=== PATIENT | female | born 1950 | race Caucasian/White ===

== ENCOUNTER → 2016-11-06 10:05 | Outpatient (CLI) | payer MEDICARE, OTHER ==
[2013-07-18 13:38] VITALS: BMI 22.0
[~2016-11-06 10:05] MED LIST: AMBIEN10 MG PO; APAP325 MG PO; CALCIUM CITRATE1 TAB PO; COZAAR50 MG PO; DULCOLAX10 MG/SUPP RC; FISH OIL 1,0001 CA1 PO; HYDRALAZINE20 MG/ML IV; HYDROCORTISONE30 G8 TP; MIRALAX17 GM PO; OYST-CAL-5001 TAB PO; PRILOSEC10 MG PO; PRILOSEC20 MG PO; PROTONIX 40 MG40 MG IV; PROTONIX40 MG PO; SALINE FLUSH10 ML IV; SENOKOT-S TABLE1 TAB PO; VITAMIN D2000 UNIT PO; VITAMIN D31000 UNIT PO; ZOCOR40 MG PO
== END | disposition home or self-care (01) ==
LOC: D.CT 10:05
DX: R41.82 Altered mental status, unspecified (principal)

== ENCOUNTER → 2016-11-11 16:32 | Outpatient (CLI) | payer MEDICARE, OTHER ==
[2013-07-18 13:38] VITALS: BMI 22.0
== END | disposition home or self-care (01) ==
LOC: D.MAMMO 16:00
DX: Z12.31 Encounter for screening mammogram for malignant neoplasm of breast (principal)

== ENCOUNTER → 2016-11-20 18:40 | Outpatient (CLI) | payer MEDICARE, OTHER ==
[2013-07-18 13:38] VITALS: BMI 22.0
== END | disposition home or self-care (01) ==
LOC: D.MAMMO 10:00
DX: R92.8 Other abnormal and inconclusive findings on diagnostic imaging of breast (principal)

== ENCOUNTER 2017-07-09 12:59 | Outpatient (CLI) | payer MEDICARE, OTHER ==
[~2017-07-09] VITALS: Ht 167.6 cm; Wt 56.8 kg
[2017-07-09 14:19] VITALS: BP 124/53; Ht 167.6 cm; Wt 56.8 kg
== END 2017-07-09 14:25 | disposition home or self-care (01) ==
LOC: D.OPS 12:59
DX: M81.0 Age-related osteoporosis without current pathological fracture (principal)

== ENCOUNTER 2018-01-30 09:36 | Inpatient (IN) | payer MEDICARE, OTHER ==
[2018-01-30] VITALS (8 sets, daily range): BP systolic 138–170; BP diastolic 64–71; BMI 19.4
[~2018-01-30] VITALS: Ht 167.6 cm; Wt 55.6 kg
[2018-01-30 10:06] LABS: BASOPHILS 0.2 % (0-2); EOSINOPHILS 0.2 % (0-7); HEMATOCRIT 40.1 % (36.0-48.0); HEMOGLOBIN 13.8 g/dL (12-16); IMMATURE GRANULOCYTES 0.3 % (0-5); LYMPHOCYTES 7.5 % (15-50); MCH 31.4 pg (26.0-34.0); MCHC 34.4 g/dL (31.0-37.0); MCV 91.3 fL (80.0-100.0); MEAN PLATELET VOLUME 8.4 fL (7.4-10.4); MONOCYTES 7.4 % (2-11); NEUTROPHILS 84.4 % (40-80); PLATELET COUNT 327 10x3/uL (130-400); RBC 4.39 10x6/uL (4.00-5.40); WBC 18.7 10x3/uL (4.8-10.8)
[2018-01-30 10:14] LABS: INR 0.96 (0.85-1.17); PROTIME 12.3 SECONDS (11.6-15.0)
[2018-01-30 10:24] LABS: ALBUMIN 3.3 g/dL (3.4-5.0); ALKALINE PHOSPHATASE 72 U/L (46-116); ALT (SGPT) 22 U/L (10-68); BILIRUBIN - TOTAL 0.28 mg/dL (0.2-1.3); CALC OSMOLALITY 283 mosm/kg (275-300); CALCIUM 8.4 mg/dL (8.5-10.1); CARBON DIOXIDE 24.4 mmol/L (21.0-32.0); CHLORIDE - SERUM 105 mmol/L (98-107); CREATININE - SERUM 0.7 mg/dL (0.6-1.3); GLUCOSE 130 mg/dL (74-106); POTASSIUM - SERUM 3.8 mmol/L (3.5-5.1); PROTEIN - SERUM 6.7 g/dL (6.4-8.2); SODIUM 141 mmol/L (136-145); UREA NITROGEN 15 mg/dL (7-18); eGFR NON AFRICAN AMERICAN 88 mL/min (90-120)
[2018-01-30 11:03] LABS: APPEARANCE HAZY (CLEAR); BACTERIA MANY /hpf (NONE SEEN); BILIRUBIN NEGATIVE (NEGATIVE); COLOR YELLOW (YELLOW); EPITHELIAL CELLS RARE /hpf (0-5); GLUCOSE NEGATIVE (NEGATIVE); KETONE NEGATIVE (NEGATIVE); NITRITE POSITIVE (NEGATIVE); PROTEIN TRACE mg/dL (NEGATIVE); RED CELLS - URINE OCC /hpf (0-5); SPECIFIC GRAVITY 1.025 (1.005-1.020); UROBILINOGEN NORMAL (NORMAL); WHITE CELLS - URINE 0-5 /hpf (0-5)
--- NOTE | 2018-01-30 12:10 | NUR ---
PATIENT AWAKE AND ALERT, RESPIRATIONS EVEN AND UNLABORED. SHE IS GUARDING AND RUBBING THE AREA LIGHTLY. FAMILY AND PATIENT UPDATED ON PLAN OF CARE AND DELAYS IN CARE. WILL CONTINUE TO MONITOR.
--- NOTE | 2018-01-30 12:50 | NUR ---
REC'D VIA STRETCHER FROM ER PERSONNEL, AWAKE, EYES WITH UPWARD GAZE, ANSWERS YES AND NO QUESTIONS, VSS, C/O OF PAIN WITH TOUCH OF RIGHT LEG, RIGHT LEG NOTED TO BE SHORTENED AND EXTERNALLY FIXATED, VERY PAINFUL NEAR HIP AREA, ASSESSMENT COMPLETED PER FLOWSHEET, FAMILY TO BEDSIDE, STATUS UPDATED, AWAITING WITH SPEAK WITH MD'S, ASSESSMENT COMPLETED PER MAR FLOWSHEET.
[2018-01-30] MEDS ORDERED: OS-CAL500 MG PO (13:53)
--- NOTE | 2018-01-30 15:00 | NUR ---
ASSESSMENT COMPLETED NO ACUTE CHANGE FROM PREVIOUS, DENIES PAIN AT THIS TIME
--- NOTE | 2018-01-30 19:30 | NUR ---
RECEIVED PATIENT CARE SHIFT ASSESSMENT COMPLETED SEE FLOWSHEET
--- NOTE | 2018-01-30 21:15 | NUR ---
PT RESTING COMFORTABLY VSS WILL CONTINUE TO MONITOR
--- NOTE | 2018-01-30 23:15 | NUR ---
REASSESSMENT SEE FLOWSHEET
[2018-01-31] VITALS (25 sets, daily range): BP systolic 121–169; BP diastolic 57–95
--- NOTE | 2018-01-31 01:45 | NUR ---
PT VITALS STABLE - SKIN WARM TO TOUCH AFEBRILE AT THIS TIME WILL CONTINUE TO MONITOR
--- NOTE | 2018-01-31 02:43 | NUR ---
PATIENT ABLE TO SPEAK AND ANSWER YES AND NO QUESTIONS
--- NOTE | 2018-01-31 03:15 | NUR ---
REASSESSMENT COMPLETED SEE FLOWSHEET
[2018-01-31 04:35] LABS: BASOPHILS 0.1 % (0-2); EOSINOPHILS 0 % (0-7); HEMATOCRIT 36.5 % (36.0-48.0); HEMOGLOBIN 12.3 g/dL (12-16); IMMATURE GRANULOCYTES 0.2 % (0-5); LYMPHOCYTES 12.8 % (15-50); MCH 31.3 pg (26.0-34.0); MCHC 33.7 g/dL (31.0-37.0); MCV 92.9 fL (80.0-100.0); MEAN PLATELET VOLUME 8.6 fL (7.4-10.4); MONOCYTES 13.7 % (2-11); NEUTROPHILS 73.2 % (40-80); PLATELET COUNT 313 10x3/uL (130-400); RBC 3.93 10x6/uL (4.00-5.40); RDW 13.4 % (11.5-14.5)
[2018-01-31 04:48] LABS: WBC 12.7 10x3/uL (4.8-10.8)
[2018-01-31 04:49] LABS: INR 1.01 (0.85-1.17); PROTIME 12.8 SECONDS (11.6-15.0)
[2018-01-31 04:52] LABS: CALC OSMOLALITY 280 mosm/kg (275-300); CALCIUM 7.9 mg/dL (8.5-10.1); CARBON DIOXIDE 25.5 mmol/L (21.0-32.0); CHLORIDE - SERUM 105 mmol/L (98-107); CREATININE - SERUM 0.7 mg/dL (0.6-1.3); GLUCOSE 135 mg/dL (74-106); POTASSIUM - SERUM 4.1 mmol/L (3.5-5.1); SODIUM 140 mmol/L (136-145); UREA NITROGEN 12 mg/dL (7-18); eGFR NON AFRICAN AMERICAN 88 mL/min (90-120)
--- NOTE | 2018-01-31 05:24 | NUR ---
PT RESTING IN BED, RESPONDS "NO" WHEN ASKED ABOUT PAIN. PHYSICALLY WHITDRAWLS FROM PAIN DURING RLE ASSESSMENT. NO ACUTE CHANGES, WILL CONTINUE TO MONITOR
--- NOTE | 2018-01-31 07:05 | NUR ---
REPORT RECIEVED, SHIFT ASSESSMENT COMPLETE, PT IS AWAKE AND ALERT, FOLLOWS COMMANDS, REORIENTED TO TIME, SOME APHASIC SPEECH NOTED, CLEAR SPEECH AT TIMES, ALL PPP, VSS, WILL CON'T TO MONITOR
--- NOTE | 2018-01-31 08:00 | NUR ---
DR. DICK AT BEDSIDE, UPDATE GIVEN, NEW ORDERS RECIVED,
--- NOTE | 2018-01-31 10:51 | NUR ---
DR. DUGAN AT BEDSIDE, UPDATE GIVEN
--- NOTE | 2018-01-31 11:15 | NUR ---
REASSESSMENT COMPLETE, NO CHANGES NOTED, WILL CON'T TO MONITOR
--- NOTE | 2018-01-31 12:39 | NUR ---
AT BEDSIDE, CONSENT SIGNED FOR TOMMOROW'S SURGERY
--- NOTE | 2018-01-31 13:00 | NUR ---
FAMILY AT BEDSIDE, UPDATE GIVEN
--- NOTE | 2018-01-31 15:20 | NUR ---
REASSESSMENT COMPLETE, NO CHANGES NOTED, PT RESTING COMFORTABLY AT THIS TIME, VSS, WILL CON'T TO MONITOR
--- NOTE | 2018-01-31 17:00 | NUR ---
PT RESTING AT THIS TIME, WILL CON'T TO MONITOR
--- NOTE | 2018-01-31 19:40 | NUR ---
RECEIVED PT CARE - SHIFT ASSESSMENT PERFORMED - PT DENIES PAIN, DOESN'T WANT TO BE REPOSITIONED AT THIS TIME. SYSTOLIC BP ELEVATION NOTED - LEFT SIDE WEAKNESS - RIGHT PUPIL FIXED AND DILATED. PT AWAKE AND ABLE TO REPOND APPROPRIATELY TO YES AND NO QUESTIONS. ON ROOM AIR. RESTING COMFORTABLY, WILL CONTINUE TO MONITOR
--- NOTE | 2018-01-31 21:15 | NUR ---
REPOSITIONED FOR COMFORT, NO OTHER NEEDS NOTED, WILL CON'T TO MONITOR
--- NOTE | 2018-01-31 23:09 | NUR ---
REASSESSMENT COMPLETE, NO CHANGES NOTED, PT RESTING AT THIS TIME, WILL CON'T TO MONITOR
[2018-02-01] VITALS (23 sets, daily range): BP systolic 78–171; BP diastolic 41–80; BMI 19.2
[2018-02-01 03:59] LABS: BASOPHILS 0.2 % (0-2); EOSINOPHILS 0.3 % (0-7); HEMATOCRIT 34.4 % (36.0-48.0); HEMOGLOBIN 11.5 g/dL (12-16); IMMATURE GRANULOCYTES 0.2 % (0-5); MCHC 33.4 g/dL (31.0-37.0); MCV 92.7 fL (80.0-100.0); MEAN PLATELET VOLUME 8.7 fL (7.4-10.4); MONOCYTES 16.3 % (2-11); PLATELET COUNT 291 10x3/uL (130-400); RBC 3.71 10x6/uL (4.00-5.40); RDW 13.5 % (11.5-14.5); WBC 11.7 10x3/uL (4.8-10.8)
[2018-02-01 04:28] LABS: ALBUMIN 2.8 g/dL (3.4-5.0); ALKALINE PHOSPHATASE 63 U/L (46-116); CALC OSMOLALITY 280 mosm/kg (275-300); CALCIUM 7.9 mg/dL (8.5-10.1); CARBON DIOXIDE 25.6 mmol/L (21.0-32.0); CHLORIDE - SERUM 106 mmol/L (98-107); CREATININE - SERUM 0.7 mg/dL (0.6-1.3); GLUCOSE 121 mg/dL (74-106); MAGNESIUM - SERUM 1.8 mg/dL (1.8-2.4); PROTEIN - SERUM 6.3 g/dL (6.4-8.2); SODIUM 141 mmol/L (136-145); UREA NITROGEN 11 mg/dL (7-18); eGFR NON AFRICAN AMERICAN 88 mL/min (90-120)
[2018-02-01 04:37] LABS: ALT (SGPT) 14 U/L (10-68)
--- NOTE | 2018-02-01 06:45 | NUR ---
PT PHOS LEVEL IS 2.0 - PT SCHEDULED FOR SURGERY THIS AM - CALLED PHARMACY FOR PHOSPHORUS IV - IV INFUSION IS OVER 4 HOURS WILL HOLD REPLACEMENT UNTIL PATIENT RETURNS
--- NOTE | 2018-02-01 08:45 | NUR ---
SURGERY TEAM HERE TO TAKE PT TO SURGERY
--- NOTE | 2018-02-01 10:56 | NUR ---
1022 - VERBAL INSTRUCTIONS FROM DR NELSON TO MAINTAIN MAP APPROX 90
--- NOTE | 2018-02-01 12:00 | NUR ---
DR PARRISH ORTHO SPEAKING WITH PATIENTS VIA PHONE AND UPDATED ON SURGICAL PROCEDURE
--- NOTE | 2018-02-01 14:00 | NUR ---
right piv infiltrated d/c'd cath intact. 22 guage piv started x1 attempt with blood return. PIV to right forearm
--- NOTE | 2018-02-01 17:00 | NUR ---
PT DENIES PAIN AT THIS TIME VSS TEDS AND PLEXIPULSE IN PLACE
--- NOTE | 2018-02-01 18:30 | NUR ---
PT RESTING QUIETLY WITH EYES CLOSED VSS PAIGE PAIN AT THIS TIME ORAL CARE DONE PT SAYS MOUTH DRY LIP MOISTURIZER APPLIED SHE SAYS THAT IS MUCH BETTER
--- NOTE | 2018-02-01 19:40 | NUR ---
SHIFT ASSESSMENT PERFORMED SEE FLOWSHEET
--- NOTE | 2018-02-01 20:32 | NUR ---
CALLED DR NAVARRO REGARDING PATIENT BLOOD PRESSURE, UNABLE TO LEAVE A MESSAGE AT THIS TIME
--- NOTE | 2018-02-01 23:10 | NUR ---
SEE FLOWSHEET FOR REASSESSMENT
[2018-02-02] VITALS (24 sets, daily range): BP systolic 120–164; BP diastolic 47–96
--- NOTE | 2018-02-02 01:05 | NUR ---
PT RESTING COMFORTABLY DENIES PAIN, VSS
[2018-02-02 04:47] LABS: CALC OSMOLALITY 282 mosm/kg (275-300); CALCIUM 7.5 mg/dL (8.5-10.1); CARBON DIOXIDE 25.2 mmol/L (21.0-32.0); CHLORIDE - SERUM 107 mmol/L (98-107); CREATININE - SERUM 0.6 mg/dL (0.6-1.3); GLUCOSE 120 mg/dL (74-106); SODIUM 142 mmol/L (136-145); UREA NITROGEN 11 mg/dL (7-18); eGFR NON AFRICAN AMERICAN > 90 mL/min (90-120)
[2018-02-02 04:49] LABS: BASOPHILS 0.2 % (0-2); EOSINOPHILS 0.1 % (0-7); IMMATURE GRANULOCYTES 0.2 % (0-5); LYMPHOCYTES 14.6 % (15-50); MCH 30.6 pg (26.0-34.0); MCHC 33.6 g/dL (31.0-37.0); MCV 91.1 fL (80.0-100.0); MEAN PLATELET VOLUME 8.8 fL (7.4-10.4); MONOCYTES 16.1 % (2-11); NEUTROPHILS 68.8 % (40-80); PLATELET COUNT 292 10x3/uL (130-400); RDW 13.3 % (11.5-14.5)
[2018-02-02 04:52] LABS: HEMATOCRIT 26.5 % (36.0-48.0); HEMOGLOBIN 8.9 g/dL (12-16); RBC 2.91 10x6/uL (4.00-5.40); WBC 8.6 10x3/uL (4.8-10.8)
[2018-02-02 04:57] LABS: POTASSIUM - SERUM 3.1 mmol/L (3.5-5.1)
--- NOTE | 2018-02-02 07:15 | NUR ---
REPORT RECEIVED AND CARE ASSUMED. SHIFT ASSESSMENT COMPLETED. EYES CLOSED WITH EVEN AND UNLABORED RESP. ON ROOM AIR. ON CONTACT ISOLATION FOR UTI OF ECOLI. GUZMAN PATENT WITH YELLOW URINE. WILL CONTINUE TO MONITOR.
--- NOTE | 2018-02-02 09:35 | NUR ---
Nutrition follow-up: Pt s/p hip repair Remains NPO due to not passing swallow eval Labs reviewed Wt: 125# Received nutrition consult. Recommend placing NGT and starting Osmolite 1.0 madeline @ 25 ml/hr with gradual increase to goal rate of 75 ml/hr. Flush with 60 ml H2O every 4 hours RDN following.
--- NOTE | 2018-02-02 10:15 | NUR ---
DR. MARI OFFICE CALLED RE: NGT/FEEDINGS
--- NOTE | 2018-02-02 15:14 | NUR ---
Nutrition consult: Per Dr. Duarte, TF of Osmolite 1.0 madeline ordered to start @ 20 ml/hr with gradual increase to goal rate of 70 ml/hr with 60 ml H2O flush Q [address] RDN following.
--- NOTE | 2018-02-02 16:15 | NUR ---
RECIEVED REPORT ON PT AT THIS TIME. PT NOTED LETHARGIC, RT SIDE WEAKER THAN LT. PT ONLY ABLE TO STATE YES OR NO QUESTIONS. NO ACUTE DISTRESS NOTED. CALL LIGHT IN REACH. FAMILY AT BEDSIDE. WILL CONTINUE PLAN OF CARE.
--- NOTE | 2018-02-02 18:09 | NUR ---
TUBE FEEDS STARTED AT THIS TIME PER PHYSICAIN ORDERS PER NGT. PLACEMENT VERIFIED VIA AUSCULTATION. NO ACUTE DISTRESS NOTED. WILL CONTINUE PLAN OF CARE.
--- NOTE | 2018-02-02 20:00 | NUR ---
REPORT RECEIVED, ASSESSMENT COMPLETED PER FLOW JOHN, PT SUPINE IN BED, HOB ELEVATED 30DEG, ON ALL ICU MONITORS, PT ANSWERS QUESTIONS WITH YES/NO ANSWERS, VSS, GUZMAN CARE COMPLETED, WILL CONT TO MONITOR
[2018-02-03] VITALS (23 sets, daily range): BP systolic 126–166; BP diastolic 46–110
[2018-02-03 05:35] LABS: BASOPHILS 0.2 % (0-2); EOSINOPHILS 1.1 % (0-7); HEMATOCRIT 25.8 % (36.0-48.0); HEMOGLOBIN 8.6 g/dL (12-16); IMMATURE GRANULOCYTES 0.3 % (0-5); LYMPHOCYTES 11.3 % (15-50); MCH 30.9 pg (26.0-34.0); MCHC 33.3 g/dL (31.0-37.0); MCV 92.8 fL (80.0-100.0); MEAN PLATELET VOLUME 8.7 fL (7.4-10.4); MONOCYTES 15.6 % (2-11); NEUTROPHILS 71.5 % (40-80); PLATELET COUNT 329 10x3/uL (130-400); RBC 2.78 10x6/uL (4.00-5.40); RDW 13.3 % (11.5-14.5); WBC 9.9 10x3/uL (4.8-10.8)
[2018-02-03 05:48] LABS: CALC OSMOLALITY 282 mosm/kg (275-300); CARBON DIOXIDE 24.4 mmol/L (21.0-32.0); CHLORIDE - SERUM 108 mmol/L (98-107); CREATININE - SERUM 0.6 mg/dL (0.6-1.3); GLUCOSE 119 mg/dL (74-106); POTASSIUM - SERUM 3.5 mmol/L (3.5-5.1); SODIUM 142 mmol/L (136-145); UREA NITROGEN 10 mg/dL (7-18); eGFR NON AFRICAN AMERICAN > 90 mL/min (90-120)
--- NOTE | 2018-02-03 07:20 | NUR ---
REPORT RECIEVED, SHIFT ASSESSMENT COMPLETE, PT IS CONFUSED LYING IN BED, REORIENTS EASILY, ALL PPP, VSS, WILL CON'T TO MONITOR
--- NOTE | 2018-02-03 09:02 | NUR ---
DR. NAVARRO AT BEDSIDE, UPDATE GIVEN TO FAMILY, NEW ORDERS RECIEVED
--- NOTE | 2018-02-03 10:12 | NUR ---
Bryanna Note- Acute Inpatient Rehab prescreen order received. The patient has not been up with PT yet, have a pending PT order- will follow at this time to see her functional ability to participate in the required therapy. Thank you for this referral! Dunia Cook RN Clinical Liaison, [facility] Rehab
--- NOTE | 2018-02-03 11:30 | NUR ---
REASSESSMENT COMPLETE, PT NOT FOLLOWING COMMANDS AT THIS TIME, REPOSITIONED FOR COMFORT,
--- NOTE | 2018-02-03 13:30 | NUR ---
COMPLETE BATH AND LINEN CHANGE, PT TOLERATED WELL
--- NOTE | 2018-02-03 14:15 | MORECARE ---
CASE MANAGEMENT DISCHARGE SUMMARY PATIENT: JOSEPH MG UNIT: [id number] ADM DATE: 01/30/18 AGE: 67 : 48 SEX: F ROOM/BED: D.2306 AUTHOR: LAURA HURLEY PHYSICIAN: REFERRING PHYSICIAN: PIOTR DICK DO DATE OF SERVICE: 02/03/18 Discharge Plan [facility] Name[facility] [facility] 1950 Planned Disposition: Anticipated Discharge Date: Discharge Date: Expected LOS: Initial Reviewer: [email or web address] Initial Review Date: 01/30/2018 Generated: 02/03/18 3:14 pm Patient Name: JOSEPH MG Page [phone] at 1415 All edits/amendments must be made on the electronic document DICTATION DATE: 02/03/181413 IN [employer] REPAIRER: SHAAN 02/03/18 1414 RPT#: [id number] DC DATE: STATUS: ADM IN [facility] [address] [place] [address] END OF REPORT
--- NOTE | 2018-02-03 15:15 | NUR ---
PT NOW FOLLOWING COMMANDS, SHAKES HEAD YES/NO,
--- NOTE | 2018-02-03 16:29 | MORECARE ---
CASE MANAGEMENT DISCHARGE SUMMARY PATIENT: JOSEPH MG UNIT: [id number] ADM DATE: 01/30/18 AGE: 67 : 48 SEX: F ROOM/BED: D.2306 AUTHOR: LAURA HURLEY PHYSICIAN: REFERRING PHYSICIAN: PIOTR DICK DO DATE OF SERVICE: 02/03/18 Discharge Plan Patient Name: JOSEPH MG [facility] [facility] 1950 Planned Disposition: Inpatient Rehab Anticipated Discharge Date: Discharge Date: Expected LOS: Initial Reviewer: [email or web address] Initial Review Date: 02/03/2018 Generated: 02/03/18 5:29 pm DCPIA - Discharge Planning Initial Assessment Updated by [id number]: Ana Willingham on 02/03/18 4:22 pm * Is the patient Alert and Oriented? No * How many steps to enter\exit or inside your home? * PCP Jhony Duarte * [facility] * Preadmission Environment Home with Family * ADLs Partial Dependent * Partial ADLs (Assistance needed) Ambulation Bathing Dressing Eating Medication Management Toileting Transfers * Equipment Walker Wheelchair * List name and contact numbers for known caregivers / representatives who currently or will assist patient after discharge: Mike Alfredo - [email or web address] - [phone] * Verbal permission to speak to the caregivers and representatives has been obtained from the patient. No * Community resources currently utilized Other * Please name any agencies selected above. Has healthcare customer service that comes in 5 days a week for 4 hrs day and assist with therapy and daily needs * Additional services required to return to the preadmission environment? No * Can the patient safely return to the preadmission environment? Yes * Has this patient been hospitalized within the prior 30 days at any hospital? No Last DP export: 02/03/18 1:15 Patient Name: JOSEPH MG Page [id number] at 6281 All edits/amendments must be made on the electronic document DICTATION DATE: 02/03/181627 CENTRAL OFFICE REPAIRER SUPERVISOR: SHAAN 02/03/181627 RPT#: [id number] DC DATE: STATUS: ADM IN [facility] [address] [place] [address] END OF REPORT
--- NOTE | 2018-02-03 16:40 | MORECARE ---
CASE MANAGEMENT DISCHARGE SUMMARY PATIENT: JOSEPH MG UNIT: [id number] ADM DATE: 01/30/18 AGE: 67 : 48 SEX: F ROOM/BED: D.2306 AUTHOR: LAURA HURLEY PHYSICIAN: REFERRING PHYSICIAN: PIOTR DICK DO DATE OF SERVICE: 02/03/18 Discharge Plan Patient Name: JOSEPH MG Facility: [facility]:[place] : 1950 Planned Disposition: Inpatient Rehab Anticipated Discharge Date: Discharge Date: Expected LOS: Initial Reviewer: [email or web address] Initial Review Date: 02/03/2018 Generated: 02/03/18 5:40 pm Comments DCP- Discharge Planning Updated by [email or web address]: Ana Willingham on 02/03/18 3:[address] Patient Name: JOSEPH MG Admission Status: ER Accout number: [id number] Admission Date: 01-30-2018 : 1950 Admission Diagnosis:DISPLACED INTERTROCHANTERIC FRACTURE OF RIGHT FEMUR, IN Attending: Piotr Dick Current LOS: 4 Anticipated DC Date: Planned Disposition: Inpatient Rehab Primary Insurance: MEDICARE A & B Discharge Planning Comments: CM spoke with patients spouse (Mike) Patient is currently non-verbal. Mike stated that she lived at home with him prior to admission. He stated that she has a caregiver that comes in 5 days a week for 4 hr. a day. (Dania) She helps with therapy speech and exercise therapy. Mike denies any discharge needs at this time. Patient has an evaluation for Inpatient Rehab but wasn't responding when PT was here for evaluation. Plan for inpatient rehab upon discharge from acute care then home. CM will continue to follow and assist with discharge planning / needs. Pot Room Tapper: Ana Willingham DCPIA - Discharge Planning Initial Assessment Updated by [email or web address]: Ana Willingham on 02/03/18 4:22 pm * Is the patient Alert and Oriented? No * How many steps to enter\exit or inside your home? * PCP Jhony Duarte * Pharmacy [facility] * Preadmission Environment Home with Family * ADLs Partial Dependent * Partial ADLs (Assistance needed) Ambulation Bathing Dressing Eating Medication Management Toileting Transfers * Equipment Walker Wheelchair * List name and contact numbers for known caregivers / representatives who currently or will assist patient after discharge: Mike Alfredo - spouse - [phone] * Verbal permission to speak to the caregivers and representatives has been obtained from the patient. No * Community resources currently utilized Other * Please name any agencies selected above. Has daycare worker that comes in 5 days a week for 4 hrs day and assist with therapy and daily needs * Additional services required to return to the preadmission environment? No * Can the patient safely return to the preadmission environment? Yes * Has this patient been hospitalized within the prior 30 days at any hospital? No Last DP export: 02/03/18 3:29 Patient Name: JOSEPH MG Page [id number] at 1640 All edits/amendments must be made on the electronic document DICTATION DATE: 02/03/18 163 BRAKE TESTER: SHAAN 02/03/18 163 RPT#: [id number] DC DATE: STATUS: ADM IN [facility] [address] [place] [address] END OF REPORT
--- NOTE | 2018-02-03 17:30 | NUR ---
FAMILY AT BEDSIDE, UPDATE GIVEN
--- NOTE | 2018-02-03 19:30 | NUR ---
ASSESSMENT COMPLETE, PATIENT REPOSITIONED, ORAL CARE PROVIDED, NO OTHER NEEDS COMMUNICATED AT THIS TIME. IV RESITED 20G TO RIGHT FOREARM X1 ATTEMPT
--- NOTE | 2018-02-03 21:00 | NUR ---
PATIENT REPOSITIONED, MONITORING EQUIPMENT ADJUSTED, CONTINUE POC
--- NOTE | 2018-02-03 23:00 | NUR ---
RE-ASSESSMENT COMPLETE, PATIENT REPOSITIONED, ORAL CARE PROVIDED, NO OTHER NEEDS NOTED OR COMMUNICATED AT THIS TIME
[2018-02-04] VITALS (24 sets, daily range): BP systolic 115–165; BP diastolic 44–75
--- NOTE | 2018-02-04 01:00 | NUR ---
PATIENT REPOSITIONED, GUZMAN CARE PROVIDED, CONTINUE POC
--- NOTE | 2018-02-04 03:00 | NUR ---
RE-ASSESSMENT COMPLETE, ORAL CARE PROVIDED, PATIENT REPOSITIONED
[2018-02-04 04:32] LABS: BASOPHILS 0.1 % (0-2); EOSINOPHILS 1.9 % (0-7); HEMATOCRIT 23.2 % (36.0-48.0); HEMOGLOBIN 7.9 g/dL (12-16); IMMATURE GRANULOCYTES 0.2 % (0-5); LYMPHOCYTES 13.4 % (15-50); MCH 31.1 pg (26.0-34.0); MCHC 34.1 g/dL (31.0-37.0); MCV 91.3 fL (80.0-100.0); MEAN PLATELET VOLUME 8.4 fL (7.4-10.4); MONOCYTES 13.8 % (2-11); NEUTROPHILS 70.6 % (40-80); PLATELET COUNT 326 10x3/uL (130-400); RBC 2.54 10x6/uL (4.00-5.40); RDW 13.2 % (11.5-14.5)
[2018-02-04 04:55] LABS: CALC OSMOLALITY 281 mosm/kg (275-300); CALCIUM 7.9 mg/dL (8.5-10.1); CARBON DIOXIDE 26.9 mmol/L (21.0-32.0); CHLORIDE - SERUM 106 mmol/L (98-107); CREATININE - SERUM 0.5 mg/dL (0.6-1.3); GLUCOSE 136 mg/dL (74-106); POTASSIUM - SERUM 3.2 mmol/L (3.5-5.1); SODIUM 141 mmol/L (136-145); UREA NITROGEN 11 mg/dL (7-18); eGFR NON AFRICAN AMERICAN > 90 mL/min (90-120)
--- NOTE | 2018-02-04 05:00 | NUR ---
PATIENT REPOSITIONED, WAKES EAILY, THEN BACK TO SLEEP, C/L IN REACH
--- NOTE | 2018-02-04 07:00 | NUR ---
REC'D REPORT AND RESUMED CARE, AWAKE AND ALERT, FOLLOWS COMMANDS, VSS, ASSESSMENT COMPLETE PER FLOWSHEET, REPOSITIONED TO LEFT SODE, PILLOW PLACED TO BACK AND HEELS FLOATED
--- NOTE | 2018-02-04 09:41 | NUR ---
Rehab Note- Continue to follow at this time to see if the patient's activity tolerance increases to be able to particpate in the required 3hrs of therapy per day in acute inpatient rehab. Thank you for this referral! Dunia Cook RN Clinical Liaison, [facility] Rehab
--- NOTE | 2018-02-04 10:11 | NUR ---
Nutrition follow-up: Pts remains NPO Osmolite 1.0 now infusing @ 40 ml/hr and will increase to 70 ml/hr goal within 24 hours Labs reviewed Wt: 130# Pt tolerating TF at this time. RDN following.
--- NOTE | 2018-02-04 11:00 | NUR ---
ASSESSMENT COMPLETE, PRBC INFUSING AT 150 CC/HR, NO OTHER ACUTECHANGE FROM PREVIOUS ASSESSMENT
--- NOTE | 2018-02-04 13:10 | NUR ---
PRBC COMPLETE, VSS, NO SIGNS OF DISTRESS, FAMILY AT BEDSIDE, STATUS UPDATED, VOICES NO NEEDS AT THIS TIME
[2018-02-04 14:01] LABS: HEMATOCRIT 27.1 % (36.0-48.0); HEMOGLOBIN 9.2 g/dL (12-16)
--- NOTE | 2018-02-04 19:00 | NUR ---
ASSESSMENT COMPLETED. SEE FLOW SHEETS FOR ALL FINDINGS. PT AWAKE, ALERT TO NAME, FOLLOW SIMPLE COMMANDS. SR ON CM WITH HR AT 60BPM, LUNG SOUNDS CLEAR TO ULB WITH DIMINISHED TO LLB,UNLABORED ON 2L VIA NC. RT FA PIV INTACT, CLEAN AND DRY INFUSING IV FLUIDS PER ORDER VIA PUMP. RT HIP DRESSING C,D,I. GUZMAN INTACT TO GRAVITY WITH CONSTANTINO DRAINAGE TO BAG. PPP. REPOSITIONED FOR COMFORT. PILLOW IN USE FOR SUPPORT. WILL CONT TO MONITOR.
--- NOTE | 2018-02-04 21:00 | NUR ---
NO FAMILY VISITING. SCHEDULED MEDS GIVEN PER ORDER VIA NGT WITHOUT DIFFIC. REPOSITIONED FOR COMFORT. CONT TF PER ORDER. WILL CONT TO MONITOR.
--- NOTE | 2018-02-04 23:00 | NUR ---
REASSESSMENT COMPLETED. SEE FLOW SHEETS FOR ALL FINDINGS. PT AROUSES WITH VOICES, NO ACUTE CHANGED NOTED. VSS. CPOC
[2018-02-05] VITALS (24 sets, daily range): BP systolic 120–168; BP diastolic 47–89
--- NOTE | 2018-02-05 01:00 | NUR ---
PT AWAKE, FOLLOW SIMPLE COMMANDS, REPOSITIONED FOR COMFORT, PILLOWS FOR COMFORT. VSS. CPOC.
--- NOTE | 2018-02-05 03:00 | NUR ---
REASSESSMENT COMPLETED PER FLOW SHEETS. PT AROUSES EASILY WITH VOICES. NO ACUTE CHANGES NOTED IN PT'S STATUS. CPOC.
[2018-02-05 03:31] LABS: BASOPHILS 0.2 % (0-2); HEMATOCRIT 27.9 % (36.0-48.0); HEMOGLOBIN 9.5 g/dL (12-16); IMMATURE GRANULOCYTES 0.3 % (0-5); LYMPHOCYTES 14.1 % (15-50); MCH 30.6 pg (26.0-34.0); MCHC 34.1 g/dL (31.0-37.0); MEAN PLATELET VOLUME 8.5 fL (7.4-10.4); MONOCYTES 11.8 % (2-11); NEUTROPHILS 71.6 % (40-80); PLATELET COUNT 339 10x3/uL (130-400); RDW 14.2 % (11.5-14.5); WBC 11.8 10x3/uL (4.8-10.8)
[2018-02-05 03:35] LABS: CALC OSMOLALITY 277 mosm/kg (275-300); CARBON DIOXIDE 25.2 mmol/L (21.0-32.0); CHLORIDE - SERUM 105 mmol/L (98-107); CREATININE - SERUM 0.5 mg/dL (0.6-1.3); GLUCOSE 159 mg/dL (74-106); POTASSIUM - SERUM 4.1 mmol/L (3.5-5.1); SODIUM 138 mmol/L (136-145); UREA NITROGEN 9 mg/dL (7-18); eGFR NON AFRICAN AMERICAN > 90 mL/min (90-120)
--- NOTE | 2018-02-05 05:00 | NUR ---
PT RESTING QUIETLY WITHOUT DISTRESS. VSS.
--- NOTE | 2018-02-05 07:00 | NUR ---
REPORT RECIEVED, SHIFT ASSESSMENT COMPLETE, DR. DICK AT BEDSIDE, UPDATE GIVEN, NEW ORDERS RECIEVED,
--- NOTE | 2018-02-05 09:00 | NUR ---
FAMILY AT BEDSIDE, UPDATE GIVEN
--- NOTE | 2018-02-05 10:02 | NUR ---
NUTRITION F/U PT REMAINS IN ISOLATION. OSMOLITE 1.0 NIMISHA CURRENTLY AT 60 CC/HR WITH GOAL RATE 70 CC/HR. WILL CONTINUE TO PROVIDE OSMOLITE, MONITOR PT PROGRESS. RD FOLLOWING
--- NOTE | 2018-02-05 11:15 | NUR ---
REASSESSMENT COMPLETE, NO CHANGES NOTED, PT RESTING AT THIS TIME, WILL CON'T TO MONITOR
--- NOTE | 2018-02-05 13:05 | NUR ---
REPOSITIONED FOR COMFORT, DRSG CHANGED TO RIGHT HIP,
--- NOTE | 2018-02-05 15:15 | NUR ---
REASSESSMENT COMPLETE, REPOSITIONED FOR COMFORT, WILL CON'T TO MONITOR
--- NOTE | 2018-02-05 17:00 | NUR ---
FAMILY AT BEDSIDE, UPDATE GIVEN
--- NOTE | 2018-02-05 21:30 | NUR ---
NO VISITORS PRESENT AT THIS TIME, PT POSITIONED FOR COMFORT, VSS.
[2018-02-06] VITALS (20 sets, daily range): BP systolic 121–168; BP diastolic 52–107
--- NOTE | 2018-02-06 06:17 | NUR ---
PT INCONTINENT OF MODERATE FORMED BM, COMPLETE BATH AND LINEN CHANGE DONE, POSITIONED FOR COMFORT, VSS.
[2018-02-06 07:49] LABS: BASOPHILS 0.1 % (0-2); EOSINOPHILS 1.6 % (0-7); HEMATOCRIT 29.3 % (36.0-48.0); HEMOGLOBIN 10.1 g/dL (12-16); IMMATURE GRANULOCYTES 0.4 % (0-5); LYMPHOCYTES 13.4 % (15-50); MCH 30.5 pg (26.0-34.0); MCHC 34.5 g/dL (31.0-37.0); MCV 88.5 fL (80.0-100.0); MEAN PLATELET VOLUME 8.3 fL (7.4-10.4); MONOCYTES 14.2 % (2-11); NEUTROPHILS 70.3 % (40-80); PLATELET COUNT 379 10x3/uL (130-400); RBC 3.31 10x6/uL (4.00-5.40); RDW 13.9 % (11.5-14.5); WBC 13.5 10x3/uL (4.8-10.8)
[2018-02-06 09:12] LABS: ALBUMIN 2.3 g/dL (3.4-5.0); ALKALINE PHOSPHATASE 146 U/L (46-116); ALT (SGPT) 25 U/L (10-68); BILIRUBIN - TOTAL 0.89 mg/dL (0.2-1.3); CALC OSMOLALITY 266 mosm/kg (275-300); CALCIUM 8.2 mg/dL (8.5-10.1); CARBON DIOXIDE 22.7 mmol/L (21.0-32.0); CHLORIDE - SERUM 100 mmol/L (98-107); CREATININE - SERUM 0.1 mg/dL (0.6-1.3); GLUCOSE 110 mg/dL (74-106); MAGNESIUM - SERUM 1.7 mg/dL (1.8-2.4); SODIUM 134 mmol/L (136-145); UREA NITROGEN 8 mg/dL (7-18); eGFR NON AFRICAN AMERICAN > 90 mL/min (90-120)
--- NOTE | 2018-02-06 10:00 | NUR ---
SPOUSE AT BEDSIDE - ANSWERED ALL QUESTIONS TO FAMILY'S STATISFACDTION - DISCUSSED ADL'S PREVOIOUS TO PT'S CURRENT ILLNESS - PT IS W/C BOUND BUT ABLE TO GET AROUND - 1ST CVA ABOUT 6 YEARS AGO - CPOC
--- NOTE | 2018-02-06 12:00 | NUR ---
NO VISITORS AT THIS TIME - PT RESTING - DR. MARIE AT BEDSIDE FOR ASSESSMENT 0 ORDERS RECIEVED TO GET PT UP TO CHAIR - RESTART TUBE FEEDING AT 10ML/HR AND PROGRESS TO 70ML/HR (UP 10ML/HR EVERY 8 HOURS) DISCUSSED ASPIRIN ANTI-COAGULATION THERAPY - ORDER CT HEAD - CPOC
--- NOTE | 2018-02-06 14:47 | NUR ---
BATHED PT - CHANGED LINENS/BED CLOTHES, CHANGED RIGHT HIP DRESSING. URINE CULTURE OBTAINED - SENT TO LABS
--- NOTE | 2018-02-06 15:55 | NUR ---
TRANSFERRED PT VIA BED FROM CT SCAN - PT TOLERATED PROCEDURE WELL
--- NOTE | 2018-02-06 15:57 | NUR ---
I&O COMPLTE SEE FLOW SHEET
--- NOTE | 2018-02-06 16:00 | NUR ---
X-RAY TECH FOR CXR TO ASSESS LOCATION OF NG TUBE IN STOMACH -NGT TUBE NOT IN CORRECT PLACEMENT - TUBE COILED IN STOMACH - ADJUSTED LENGHT OF NGT (APPROX 12 INCHES) - REPEAT X-RAY NGT IN PROPPER LOCATION - WILL START NG TUBE FEED PER MD REQUEST - PT WAS NOT ASSESS BY P.T. TODAY - WILL POSTION PATIET UP RIGHT IN BED (45 DEGREE) TO START TUBE FEED AND MONITOR CLOSELY
--- NOTE | 2018-02-06 18:00 | NUR ---
RESTATED TUBE FEEEDING - PT AT 45 DEGREE - START AT 10ML/HR PER MD ORDERED - CPOC
--- NOTE | 2018-02-06 18:07 | NUR ---
NO ACUTE CHANGE FROM PREVIOUS CT SCAN PER RADIOLOGIST - CPOC
--- NOTE | 2018-02-06 19:40 | NUR ---
RESUMED CARE OF PT, ASSESSNENT PER FLOWSHEET. PT AROUSES TO VOICE, DOES FOLLOW COMMANDS AND SHAKE HEAD TO YES/NO QUESTIONS BUT DOES NOT VERBALLY RESPOND, PPP, RT HIP DRESSING CDI, HR SR ON CM, NGT WITH PLACEMENT VERIFIED VIA AUSCULTATION OF SMALL AIR BOLUS, GUZMAN CATH PATENT. POSITIONED FOR COMFORT SUPPORTED WITH PILLOWS, HOB AT 45 DEGREES.
--- NOTE | 2018-02-06 21:20 | NUR ---
NO VISITORS PRESENT AT THIS TIME, PT RESTLESS IN BED, REPOSITIONED UP IN BED SUPPORTED WITH PILLOWS. VSS
--- NOTE | 2018-02-06 23:30 | NUR ---
REASSESSMENT PER FLOWSHEET, ORAL CARE PROVIDED, POSITIONED UP IN BED TO 45 DEGREE ANGLE SUPPORTED WITH PILLOWS. VSS
[2018-02-07] VITALS (25 sets, daily range): BP systolic 18–165; BP diastolic 43–77; Ht 167.6 cm; Wt 55.6 kg
--- NOTE | 2018-02-07 01:30 | NUR ---
PT STATED "OW" WHILE REPOSITIONING. ASKED IF SHE WANTED SOMETHING FOR PAIN AND SHE REPLIED YES. PRN NORCO 7.5/325 MG ADMINISTERED PER NGT.
--- NOTE | 2018-02-07 03:23 | NUR ---
PT RESTING IN BED WITH EYES CLOSED UP IN BED, VSS, SR ON CM.
[2018-02-07 03:46] LABS: BASOPHILS 0.1 % (0-2); EOSINOPHILS 0.9 % (0-7); HEMATOCRIT 30.4 % (36.0-48.0); HEMOGLOBIN 10.3 g/dL (12-16); IMMATURE GRANULOCYTES 0.5 % (0-5); LYMPHOCYTES 8.8 % (15-50); MCH 30.6 pg (26.0-34.0); MCHC 33.9 g/dL (31.0-37.0); MCV 90.2 fL (80.0-100.0); MEAN PLATELET VOLUME 9.2 fL (7.4-10.4); MONOCYTES 14.8 % (2-11); NEUTROPHILS 74.9 % (40-80); RBC 3.37 10x6/uL (4.00-5.40); RDW 13.8 % (11.5-14.5)
[2018-02-07 03:50] LABS: CALC OSMOLALITY 272 mosm/kg (275-300); CALCIUM 8.3 mg/dL (8.5-10.1); CARBON DIOXIDE 25.3 mmol/L (21.0-32.0); CHLORIDE - SERUM 102 mmol/L (98-107); GLUCOSE 135 mg/dL (74-106); POTASSIUM - SERUM 4.6 mmol/L (3.5-5.1); SODIUM 136 mmol/L (136-145); UREA NITROGEN 9 mg/dL (7-18)
[2018-02-07 03:51] LABS: PLATELET COUNT 272 10x3/uL (130-400); WBC 16.9 10x3/uL (4.8-10.8)
[2018-02-07 03:59] LABS: CREATININE - SERUM 0.6 mg/dL (0.6-1.3); eGFR NON AFRICAN AMERICAN > 90 mL/min (90-120)
--- NOTE | 2018-02-07 05:20 | NUR ---
PT INCONTINENT OF FORMED BROWN BM, COMPLETE BATH AND LINEN CHANGE DONE, PT TOLERATED WITHOUT DIFFICULTY.
--- NOTE | 2018-02-07 06:38 | NUR ---
AM LABS REVIEWED, NOTHING TO TREAT PER ELECTROLYTE PROTOCOL.
--- NOTE | 2018-02-07 07:00 | NUR ---
REC'ED REPORT FROM OUT GOING RN - PT RESTING WITH EYES CLOSED - RESPIRATIONS REGULAR RATE AND RHYTHM - CPOC
--- NOTE | 2018-02-07 08:15 | NUR ---
MEDICATIONS GIVEN - EXCEPT OSCAL - NOTIFIED EMERGENCY PLANNER - AWAITING RX. - CPOC
--- NOTE | 2018-02-07 08:45 | NUR ---
DR. BILLINGS AT BEDSIDE FOR ASSESSMENT - DISCUSSED P.T. PLAN OF CARE (TO GET HER UP TO BEDSIDE CHAIR) CPOC
--- NOTE | 2018-02-07 09:00 | NUR ---
INCREASED TUBE FEEDING TO 2O ML/HR - CONTINUE TO MONITOR AND REPORT FINDINGS PER POLICY
--- NOTE | 2018-02-07 09:11 | NUR ---
CALLED PHARMACY TO REQUEST 500MG OSCAL TAB - 2ND NOTIFICATION
--- NOTE | 2018-02-07 11:38 | NUR ---
DR. MARIE AT BEDSIDE FOR ASSESSMENT - ORDER S.P. THERAPY - CALLED P.T. TO LET THEM KNOW OF ORDER, LEFT VOICE MAIL. UPDATED MD ON TUBE FEED AT 30 ML/HR, URINE/BLOOD CULTURES OBTAINED, AND WBC UP (16.9). AWAITING ORDERS.
--- NOTE | 2018-02-07 13:03 | NUR ---
MEDICATIONS GIVEN - TURNED PT - PT NOT RESPONDSIVE WELL YESTERDAY - MD AWARE OF CHANGE -
--- NOTE | 2018-02-07 13:30 | NUR ---
PT RESTING AT THIS TIME, WILL CON'T TO MONITOR
--- NOTE | 2018-02-07 15:15 | NUR ---
AT BEDSIDE, UPDATE GIVEN
--- NOTE | 2018-02-07 15:17 | NUR ---
AT BEDSIDE, UPDATE GIVEN
--- NOTE | 2018-02-07 17:05 | NUR ---
DR. NESBITT AT BEDSIDE, UPDATE GIVEN
--- NOTE | 2018-02-07 17:40 | NUR ---
Rehab Note- Continue to follow at this time. Patient not progressing well with therapy. Possible PEG placement. Dunia Cook RN Clinical Liaison, [facility] Rehab
[2018-02-07 18:35] LABS: ALBUMIN 1.9 g/dL (3.4-5.0); CALC OSMOLALITY 275 mosm/kg (275-300); CALCIUM 8.1 mg/dL (8.5-10.1); CARBON DIOXIDE 24.5 mmol/L (21.0-32.0); CHLORIDE - SERUM 104 mmol/L (98-107); CREATININE - SERUM 0.6 mg/dL (0.6-1.3); GLUCOSE 120 mg/dL (74-106); MAGNESIUM - SERUM 1.8 mg/dL (1.8-2.4); PHOSPHOROUS 3.6 mg/dL (2.5-4.9); POTASSIUM - SERUM 4.1 mmol/L (3.5-5.1); PRE-ALBUMIN 11.2 mg/dL (18.0-35.7); SODIUM 138 mmol/L (136-145); UREA NITROGEN 10 mg/dL (7-18); eGFR NON AFRICAN AMERICAN > 90 mL/min (90-120)
--- NOTE | 2018-02-07 19:10 | NUR ---
Received patient resting in bed with eyes closed, assessment completed per flowsheet. Patient confused/disoriented, inconsistent appropriate response to questions. NGT secured, Pulmocare @ 30ml/hr. S1/S2 noted NSR on telemetry with HR 62, rythmic and regular. Breathing is even/unlabored on room air with O2 sat 95%, lung sounds clear throughout. Abdomen is round/soft with bowel sounds active x4, non-tender. Velez secured, clear yellow. Weakness noted all extremities with all pulses palpable, cap refill < 3 sec with skin warm/dry. Patient denies pain or other needs at this time, repositioned for comfort. See flowsheet for details, all VSS and will continue to monitor.
--- NOTE | 2018-02-07 21:00 | NUR ---
Patient sleeping in bed with eyes closed, HS meds given without difficulty. Patient repositioned for comfort, no visitors at this time. All VSS and will continue to monitor.
--- NOTE | 2018-02-07 23:00 | NUR ---
Reassessment completed per flowsheet, patient resting in bed with eyes closed. S1/S2 noted NSR on telemetry with HR 74, rythmic and regular. Breathing is even/unlabored on room air with O2 sat 93%, lung sounds clear bilateral upper with expiratory wheeze noted mid and diminished lower. All pulses palpable with cap refill < 3 sec, weakness noted all. Patient repositioned for comfort, no further needs at this time. See flowsheet for details, all VSS and will continue to monitor.
[2018-02-08] VITALS (25 sets, daily range): BP systolic 103–181; BP diastolic 57–97
--- NOTE | 2018-02-08 03:00 | NUR ---
Reassessment completed per flowsheet, patient resting in bed with eyes closed. Patient follows instructions, does not answer at this time. NGT secured, Pulmocare @ 50ml/hr. S1/S2 noted NSR on telemetry with HR 70, rythmic and regular. Breathing is even/unlabored on room air with O2 sat 95%, lung sounds clear bilateral uppper with expiratory wheeze mid and diminished lower. All pulses palpable with cap refill < 3 sec, skin warm/dry. Repositioned for comfort, no further needs at this time. See flowhsst for details, all VSS and will continue to monitor.
[2018-02-08 04:57] LABS: BASOPHILS 0.2 % (0-2); EOSINOPHILS 2.1 % (0-7); HEMATOCRIT 28.8 % (36.0-48.0); HEMOGLOBIN 9.5 g/dL (12-16); IMMATURE GRANULOCYTES 0.4 % (0-5); LYMPHOCYTES 12.9 % (15-50); MCH 30.1 pg (26.0-34.0); MCV 91.1 fL (80.0-100.0); MEAN PLATELET VOLUME 8.7 fL (7.4-10.4); MONOCYTES 14.7 % (2-11); NEUTROPHILS 69.7 % (40-80); RBC 3.16 10x6/uL (4.00-5.40); RDW 13.8 % (11.5-14.5)
[2018-02-08 05:18] LABS: PLATELET COUNT 343 10x3/uL (130-400); WBC 12.5 10x3/uL (4.8-10.8)
[2018-02-08 05:21] LABS: ALKALINE PHOSPHATASE 149 U/L (46-116); ALT (SGPT) 21 U/L (10-68); BILIRUBIN - TOTAL 0.66 mg/dL (0.2-1.3); CALC OSMOLALITY 275 mosm/kg (275-300); CARBON DIOXIDE 26.9 mmol/L (21.0-32.0); CHLORIDE - SERUM 104 mmol/L (98-107); CREATININE - SERUM 0.6 mg/dL (0.6-1.3); GLUCOSE 110 mg/dL (74-106); MAGNESIUM - SERUM 1.8 mg/dL (1.8-2.4); PHOSPHOROUS 3.4 mg/dL (2.5-4.9); PROTEIN - SERUM 5.9 g/dL (6.4-8.2); SODIUM 138 mmol/L (136-145); UREA NITROGEN 10 mg/dL (7-18); eGFR NON AFRICAN AMERICAN > 90 mL/min (90-120)
--- NOTE | 2018-02-08 07:00 | NUR ---
SHIFT ASSESSMENT COMPLETED, PT CARE ASSUMED. MONITORS ON AND WORKING, VITALS STABLE. SEE FLOW SHEET FOR FURTHER DETAIALS, CALL LIGHT WITHIN REACH, WILL CONTINUE TO OBSERVE.
--- NOTE | 2018-02-08 09:00 | NUR ---
CONSENT OBTAINED FOR EGD AND PEG PER . FAMILY AT BEDSIDE, UPDATE PROVIDED. NO CHANGES, VITALS STABLE. WILL CONTINUE TO OBSERVE.
--- NOTE | 2018-02-08 09:34 | NUR ---
Nutrition follow-up: Pt now NPO for PEG tube placement. Labs reviewed Wt: 119# Recommend restarting Osmolite 1.0 madeline @ 70 ml/hr after PEG tube placement with 60 ml H2O flush @ [address] following.
--- NOTE | 2018-02-08 11:00 | NUR ---
PT TURNED AND REPOSITIONED FOR COMFORT. NO CHANGES, MONITORS ON AND WORKING. VITALS STABLE. SEE FLOW SHEET FOR FURTHER DETIALS. WILL CONTINUE TO OBSERVE.
--- NOTE | 2018-02-08 13:00 | NUR ---
PT SITTING UP IN BED RESTING, NO SIGNS/SYMPTOMS OF PAIN OR DISCOMFORT NOTED AT THIS TIME. WILL CONTINUE TO OBSERVE.
--- NOTE | 2018-02-08 15:00 | NUR ---
NO CHNAGES, SEE FLOW SHEET FOR FURTHER DETAILS. VITALS STABLE, CALL LIGHT WITHIN REACH. WILL CONTINUE TO OBSERVE.
--- NOTE | 2018-02-08 17:00 | NUR ---
PT TURNED AND REPOSITIONED FOR COMFORT. NO SIGNS/SYMPTOMS OF PAIN OR DISCOMFORT NOTED AT THIS TIME. WILL CONTINUE TO OBSERVE.
--- NOTE | 2018-02-08 19:10 | NUR ---
Received patient resting in bed with eyes open, assessment completed per flowsheet. Patient disoriented/confused to time/situation, can follow instructions but no verbal response. S1/S2 noted NSR on telemetry with HR 83, rythmic and regular. Pacemaker noted, no pacing observed on telemetry. Breathing is shallow on room air with O2 sat 95%, lungs sounds clear bilateral upper and mid with diminished lower. Abdomen is round/soft with bowel sounds active x4, non-tender. Velez secured, clear yellow urine noted. Weakness noted all extremities with all pulses palpable, cap refill < 3 sec with skin warm/dry. Repositioned for comfort, no further needs at this time. See flowsheet for details, all VSS and will contiue to monitor.
--- NOTE | 2018-02-08 21:00 | NUR ---
HS meds given without difficulty, patient repositioned for comfort. No visitors at this time, all VSS and will continue to monitor.
--- NOTE | 2018-02-08 23:10 | NUR ---
Reassessment completed per flowsheet, patient resting in bed with eyes closed. S1/S2 noted NSR on telemetry with HR 69, rythmic and regular with no pacing noted. Breathing is shallow on room air with O2 sat 96%, lung sounds clear bilateral upper and mid with diminished lower. All pulses palpable with weakness noted all, cap refill < 3 sec. Repositioned for comfort, no further needs at this time. See flowsheet for details, all VSS and will continue to monitor.
[2018-02-09] VITALS (24 sets, daily range): BP systolic 137–194; BP diastolic 53–90
--- NOTE | 2018-02-09 01:00 | NUR ---
Patient sleeping in bed with eyes closed, patient refuses to respond to questions/follow instruction at this time. Repositioned for comfort, no further needs and will continue to monitor.
--- NOTE | 2018-02-09 03:00 | NUR ---
Reassessment completed per flowsheet, patient sleeping in bed with eyes closed. NGT secured, pulmocare @ 50ml/hr. S1/S2 noted Sinus melanie on telemetry with HR 59, rythmic and regular. Breathing is shallow on room air with O2 sat 97%, lung sounds clear bilateral upper with crackles noted mid and diminished lower. R hip incision dressing CDI. All pulses palpable with cap refill < 3 sec, skin warm/dry. Repositioned for comfort, denies needs at this time. See flowsheet for details, all VSS and will continue to monitor.
[2018-02-09 04:14] LABS: BASOPHILS 0.2 % (0-2); HEMOGLOBIN 9.7 g/dL (12-16); IMMATURE GRANULOCYTES 0.4 % (0-5); LYMPHOCYTES 11.7 % (15-50); MCH 30.4 pg (26.0-34.0); MCHC 33.4 g/dL (31.0-37.0); MCV 90.9 fL (80.0-100.0); MEAN PLATELET VOLUME 8.6 fL (7.4-10.4); MONOCYTES 11.7 % (2-11); PLATELET COUNT 321 10x3/uL (130-400); RBC 3.19 10x6/uL (4.00-5.40); RDW 13.9 % (11.5-14.5); WBC 14.2 10x3/uL (4.8-10.8)
[2018-02-09 04:37] LABS: ALBUMIN 2.1 g/dL (3.4-5.0); ALKALINE PHOSPHATASE 161 U/L (46-116); ALT (SGPT) 19 U/L (10-68); CALC OSMOLALITY 273 mosm/kg (275-300); CALCIUM 8.4 mg/dL (8.5-10.1); CARBON DIOXIDE 23.7 mmol/L (21.0-32.0); CHLORIDE - SERUM 102 mmol/L (98-107); CREATININE - SERUM 0.6 mg/dL (0.6-1.3); GLUCOSE 81 mg/dL (74-106); MAGNESIUM - SERUM 1.8 mg/dL (1.8-2.4); POTASSIUM - SERUM 4.3 mmol/L (3.5-5.1); PROTEIN - SERUM 6.3 g/dL (6.4-8.2); SODIUM 138 mmol/L (136-145); UREA NITROGEN 10 mg/dL (7-18); eGFR NON AFRICAN AMERICAN > 90 mL/min (90-120)
[2018-02-09 04:39] LABS: PHOSPHOROUS 4.3 mg/dL (2.5-4.9)
--- NOTE | 2018-02-09 09:47 | NUR ---
0700 AWAKE WATCHING TV NO DISTRESS NOTED ASSESSMENT COMPLETE
--- NOTE | 2018-02-09 09:48 | NUR ---
0730 IV INFILTRATED D/C IV TO RIGHT ARM SITE
--- NOTE | 2018-02-09 09:49 | NUR ---
0900 TUBE FEEDING OSMOLYTE TO NGT PLACEMENT VERIFIED WITH BOLUS AIR 15 ML RESIDUAL NOTED
--- NOTE | 2018-02-09 14:54 | NUR ---
1100 MODERATE INCONTINENT SORF BROWN BM NOTED. REPOSITIONED FOR COMFORT FAMILY WENT HOME
--- NOTE | 2018-02-09 14:56 | NUR ---
1330 RESIDUAL 5ML INCREASED OSMOLYTE TUBE FEEDING TO 60ML/HOUR
--- NOTE | 2018-02-09 18:21 | NUR ---
9360 DR NESBITT ROUNDING ON PATIENT MD SAID DO NOT HAV TO SIGN ANOTHER CONSENT YESTERDAYS CONSENT WAS OK
--- NOTE | 2018-02-09 19:30 | NUR ---
PT RECEIVED WITH EYES OPEN. UPON ENTERING AND DURING ASSESSMENT PT GRABBING NURSE, STETHOSCOPE AND ATTEMPTING TO BITE AND HIT. PT WEAK AND UNABLE TO HIT OR BIT. IV TO LEFT UPPER ARM. WILL CONTINUE TO OBSERVE.
--- NOTE | 2018-02-09 21:40 | NUR ---
PT REPOSITIONED, TOLERATED WELL. WILL CONTINUE TO OBSERVE.
[2018-02-10] VITALS (24 sets, daily range): BP systolic 138–194; BP diastolic 63–110
--- NOTE | 2018-02-10 01:46 | NUR ---
PT EYES CLOSED AND CHEST RISING. NO S/S OF DISTRESS. WILL CONTINUE TO OBSERVE.
--- NOTE | 2018-02-10 03:30 | NUR ---
PT WITH EYES OPEN. PT CALM AT THIS TIME. REASSESSMENT COMPLETED, SEE FLOW SHEET. WILL CONTINUE TO OBSERVE.
[2018-02-10 03:58] LABS: BASOPHILS 0.2 % (0-2); EOSINOPHILS 1.9 % (0-7); HEMATOCRIT 29.6 % (36.0-48.0); HEMOGLOBIN 9.8 g/dL (12-16); IMMATURE GRANULOCYTES 0.6 % (0-5); LYMPHOCYTES 15.9 % (15-50); MCH 30.2 pg (26.0-34.0); MCHC 33.1 g/dL (31.0-37.0); MCV 91.4 fL (80.0-100.0); MEAN PLATELET VOLUME 8.7 fL (7.4-10.4); MONOCYTES 14.8 % (2-11); NEUTROPHILS 66.6 % (40-80); PLATELET COUNT 300 10x3/uL (130-400); RBC 3.24 10x6/uL (4.00-5.40); RDW 13.6 % (11.5-14.5); WBC 12.2 10x3/uL (4.8-10.8)
[2018-02-10 04:24] LABS: APTT 29.3 SECONDS (22.8-39.4); INR 1.05 (0.85-1.17); PROTIME 13.2 SECONDS (11.6-15.0)
[2018-02-10 04:26] LABS: ALBUMIN 2.1 g/dL (3.4-5.0); ALKALINE PHOSPHATASE 168 U/L (46-116); ALT (SGPT) 17 U/L (10-68); BILIRUBIN - TOTAL 0.58 mg/dL (0.2-1.3); CALCIUM 8.5 mg/dL (8.5-10.1); CARBON DIOXIDE 25.3 mmol/L (21.0-32.0); CHLORIDE - SERUM 104 mmol/L (98-107); CREATININE - SERUM 0.5 mg/dL (0.6-1.3); MAGNESIUM - SERUM 1.9 mg/dL (1.8-2.4); PHOSPHOROUS 3.4 mg/dL (2.5-4.9); POTASSIUM - SERUM 4.1 mmol/L (3.5-5.1); PROTEIN - SERUM 6.3 g/dL (6.4-8.2); SODIUM 139 mmol/L (136-145); UREA NITROGEN 8 mg/dL (7-18); eGFR NON AFRICAN AMERICAN > 90 mL/min (90-120)
[2018-02-10 04:35] LABS: CALC OSMOLALITY 276 mosm/kg (275-300); GLUCOSE 122 mg/dL (74-106)
--- NOTE | 2018-02-10 05:20 | NUR ---
PT WITH EYES CLOSED AND CHEST RISING. PT CALM AT THIS TIME. WILL CONTINUE TO OBSERVE.
--- NOTE | 2018-02-10 06:46 | NUR ---
PT GIVEN A BATH WITH COMPLETE LINEN CHANGE. BOWEL MOVEMENT WITH PERICARE PROVIDED PRIOR TO BATH. DRESSING TO RIGHT HIP CHANGED. NPO SINCE MIDNIGHT. WILL CONTINUE TO OBSERVE.
--- NOTE | 2018-02-10 09:42 | NUR ---
PT NPO. AM MEDS GIVEN WITH SMALL AMOUNT OF WATER. ASPIRIN HELD AT THIS TIME DUE TO SCHEDULED PROCEDURE.
--- NOTE | 2018-02-10 10:06 | NUR ---
SBP IN 170S. CLONIDINE PATCH IN PLACE PER ORDERS. HAD ENALAPRIL PRN. NOT AVAILABLE IN [place] AT THIS TIME. PHARMACY NOTIFIED. WILL GIVE WHEN AVAILABLE. WILL CONTINUE TO MONITOR PT.
--- NOTE | 2018-02-10 11:10 | NUR ---
Nutrition follow-up: Pt NPO for PEG tube placement today Labs reviewed Wt: 120# +BM RDN following.
--- NOTE | 2018-02-10 11:52 | NUR ---
SBP IN 190S AT THIS TIME. ENALAPRIL GIVEN AT THIS TIME PER ORDERS. WILL CONTINUE TO MONITOR.
--- NOTE | 2018-02-10 13:54 | NUR ---
LARGE LIQUID BROWN BM NOTED AT THIS TIME. BATH GIVEN. GUZMAN CARE PROVIDED. COMPLETE LINEN CHANGE. PULLED UP AND REPOSITIONED FOR COMFORT. NO FURTHER NEEDS AT THIS TIME. WILL CONTINUE TO MONITOR.
--- NOTE | 2018-02-10 14:33 | NUR ---
BREVING AT BEDSIDE GETTING READY FOR PEG PLACEMENT. SPOUSE NOTIFIED.
--- NOTE | 2018-02-10 14:52 | NUR ---
PEG TUBE PLACEMENT COMPLETED. PT RESTING COMFORTABLY. SPOUSE NOTIFIED. NO FURTHER NEEDS AT THIS TIME. WILL CONTINUE TO MONITOR.
--- NOTE | 2018-02-10 16:29 | NUR ---
ABDOMINAL BINDER PLACED TO HELP PREVENT PT FROM PULLING PEG TUBE OUT. FAMILY AT BEDSIDE.
--- NOTE | 2018-02-10 18:53 | OP ---
PATIENT NAME: JOSEPH MG MEDICAL RECORD: [id number] :46 LOCATION:.[facility] D.2306 ADMISSION DATE:01/30/18 SURGEON: NISHANT NESBITT MD DATE OF OPERATION: 02/10/2018 PREOPERATIVE DIAGNOSES: 1. Hemorrhagic CVA. 2. Failed swallowing evaluation. 3. Acute malnutrition. 4. Feeding problems. POSTOPERATIVE DIAGNOSES: 1. Hemorrhagic cerebrovascular accident 4. 2. Failed swallowing evaluation. 3. Acute malnutrition. 4. Feeding problems. PROCEDURES: 1. Esophagogastroduodenoscopy with antral biopsies to rule out H. pylori. 2. Percutaneous endoscopic gastrostomy tube placement, 20-Ukrainian. SURGEON: Nishant Nesbitt MD SLOT SHIFT MANAGER: None. BLOOD LOSS: Minimal. ANESTHESIA: Local with IV sedation. COMPLICATIONS: None. The risks, possible complications, and alternatives to the procedure were explained. A consent form was signed. The need for the anesthesia staff being present during the procedure includes the possible need for airway manipulation, which was necessary. OPERATIVE COURSE: The patient was seen in her ICU room. IV sedation was induced by the anesthesia staff. A bite block was inserted. A gastroscope was inserted into the mouth. It was advanced easily into the hypopharynx. The esophagus was easily intubated as were the stomach and the duodenum. Upon withdrawal, retroflexed and angulus views were obtained. Antral biopsies were obtained. The anterior abdominal wall was cleansed. We were able to transilluminate the abdominal wall. I was able to indent the abdominal wall and visualize this endoscopically. Local anesthesia was infiltrated in the epigastrium. A skin incision was accomplished. Through the skin incision, I advanced an Angiocath. I punctured the fundus of the stomach on the first try. A wire was passed easily. This was grasped with an endoscopic snare. The snare and endoscope were then withdrawn out through the mouth. The wire was attached to a pull-type gastrostomy tube, which was then pulled into place. Hub and flange devices were attached. I then re-endoscoped the patient's esophagus and stomach. There had been no evidence of false passage or perforation. The endoscope was then withdrawn under direct vision. OPERATIVE REPORT [id number] JOSEPH MG A sterile dressing was applied. TRANSINT:[id number] Voice Confirmation ID: [id number] DOCUMENT ID: [id number] NISHANT NESBITT MD at 1853 CC: [id number] DICTATION DATE: 02/10/18 1454 SALES ASSISTANTS AND SALESPERSONS: 02/10/18 1506 ADM IN [place] [id number] [place] [id number]
--- NOTE | 2018-02-10 19:51 | NUR ---
PT RECIEVED WITH EYES OPENED. ANSWERS YES/NO TO QUESTIONS. IV TO LEFT UPPER ARM WITH NS 20MEQ KCL AT 75MLS/HR. GUZMAN PATENT. ABD BINDER ON DUE TO NEW PEG TO GRAVITY. WILL CONTINUE TO OBSERVE.
--- NOTE | 2018-02-10 21:04 | NUR ---
PT WITH EYES OPEN AND NO S/S OF DISTRESS NOTED. PT CALM. ANSWERS YES/NO QUESTIONS. WILL CONTINUE TO OBSERVE.
--- NOTE | 2018-02-10 23:44 | NUR ---
PT WITH EYES CLOSED AND CHEST RISING, EASILY AWOKEN. REASSESSMENT COMPLETED, SEE FLOW SHEET. WILL CONTINUE TO OBSERVE.
[2018-02-11] VITALS (24 sets, daily range): BP systolic 152–183; BP diastolic 65–87
--- NOTE | 2018-02-11 01:47 | NUR ---
PT WITH EYES CLOSED AND CHEST RISING, NO S/S OF DISTRESS. WILL CONTINUE TO OBSERVE.
[2018-02-11 04:04] LABS: BASOPHILS 0.2 % (0-2); EOSINOPHILS 1.3 % (0-7); HEMATOCRIT 28.6 % (36.0-48.0); HEMOGLOBIN 9.5 g/dL (12-16); IMMATURE GRANULOCYTES 0.5 % (0-5); LYMPHOCYTES 15.4 % (15-50); MCHC 33.2 g/dL (31.0-37.0); MCV 90.2 fL (80.0-100.0); MEAN PLATELET VOLUME 8.4 fL (7.4-10.4); MONOCYTES 11.1 % (2-11); NEUTROPHILS 71.5 % (40-80); PLATELET COUNT 266 10x3/uL (130-400); RBC 3.17 10x6/uL (4.00-5.40); RDW 13.8 % (11.5-14.5)
[2018-02-11 04:20] LABS: CALC OSMOLALITY 269 mosm/kg (275-300); CALCIUM 8.1 mg/dL (8.5-10.1); CARBON DIOXIDE 22.7 mmol/L (21.0-32.0); CHLORIDE - SERUM 101 mmol/L (98-107); CREATININE - SERUM 0.6 mg/dL (0.6-1.3); GLUCOSE 102 mg/dL (74-106); MAGNESIUM - SERUM 1.9 mg/dL (1.8-2.4); POTASSIUM - SERUM 3.9 mmol/L (3.5-5.1); SODIUM 136 mmol/L (136-145); UREA NITROGEN 8 mg/dL (7-18); eGFR NON AFRICAN AMERICAN > 90 mL/min (90-120)
--- NOTE | 2018-02-11 05:31 | NUR ---
PT WITH BM AND PERICARE AND PAD CHANGED. COLLECTION TUBING TO PEG CAME LOOSE WITH CLEAR THICK DRAINAGE NOTED ON PAD AND SHEET, TUBING RECONNECTED WITH CLEAN FLAT SHEET CHANGED. WILL CONTINUE TO OBSERVE.
--- NOTE | 2018-02-11 07:46 | NUR ---
SHIFT REPORT RECEIVED. PT AWAKE. NO VERBAL RESPONSE. ON ROOM AIR. HAS PEG ON LUQ TO GRAVITY SUCTION PER ORDERS. SITE CDI. GUZMAN IN PLACE WITH YELLOW URINE NOTED. NO FEVER. NORMAL SINUS. SHIFT ASSESSMENT COMPLETED. NO FURTHER NEEDS AT THIS TIME. WILL CONTINUE TO MONITOR.
--- NOTE | 2018-02-11 11:00 | NUR ---
UA COLLECTED VIA IN & OUT CATH AND SENT TO LAB. PARTIAL LINEN CHANGE PROVIDED. PT HAS INCONTINENT EPISODES WHEN SHE COUGHS. ORAL TEMP 100.3 AT THIS TIME. ROOM TEMP DECREASED. COVERS REMOVED. WILL CONTINUE TO MONITOR.
--- NOTE | 2018-02-11 12:00 | NUR ---
Nutrition consult: Received order for TF s/p PEG tube placement. Order entered into [employer] RDN following.
--- NOTE | 2018-02-11 16:34 | NUR ---
OSMOLITE 1.0 INITIATED AT THIS TIME PER ORDERS. SPOUSE AT BEDSIDE. PT AWAKE. NO FURTHER NEEDS AT THIS TIME. WILL CONTINUE TO MONITOR.
--- NOTE | 2018-02-11 19:15 | NUR ---
REPORT RECEIVED, PT WITH EYES CLOSED AND CHEST RISING. ASSESSMENT COMPLETED, SEE FLOW SHEET. REPOSITONING PROVIDED. WILL CONTINUE TO OBSERVE.
--- NOTE | 2018-02-11 21:26 | NUR ---
PT WITH EYES CLOSED AND CHEST RISING. EASILY AWOKEN. MEDICATIONS GIVEN PER MAR VIA PEG. PT TOLERATED WELL. REPOSITIONING PROVIDED. WILL CONTINUE TO OBSERVE.
--- NOTE | 2018-02-11 21:31 | NUR ---
TUBE FEEDING RATE INCREASE TO 60 FROM 50 ML/HR. RESIDUAL 0. WILL CONTINUE TO OBSERVE.
--- NOTE | 2018-02-11 23:42 | NUR ---
PT RESTING WITH EYES CLOSED AND CHEST RISING. EASILY AWOKEN. REASSESSMENT COMPLETED, SEE FLOW SHEET. WILL CONTINUE TO OBSERVE.
[2018-02-12] VITALS (23 sets, daily range): BP systolic 135–187; BP diastolic 59–106
--- NOTE | 2018-02-12 01:58 | NUR ---
PT RESTING WITH EYES CLOSED AND CHEST RISING. NO S/S OF DISTRESS. WILL CONTINUE TO OBSERVE.
[2018-02-12 03:02] LABS: BASOPHILS 0.1 % (0-2); EOSINOPHILS 1.5 % (0-7); HEMATOCRIT 29.6 % (36.0-48.0); HEMOGLOBIN 9.7 g/dL (12-16); IMMATURE GRANULOCYTES 0.6 % (0-5); LYMPHOCYTES 11.1 % (15-50); MCH 29.9 pg (26.0-34.0); MCHC 32.8 g/dL (31.0-37.0); MCV 91.4 fL (80.0-100.0); MEAN PLATELET VOLUME 8.7 fL (7.4-10.4); MONOCYTES 11.5 % (2-11); NEUTROPHILS 75.2 % (40-80); PLATELET COUNT 311 10x3/uL (130-400); RBC 3.24 10x6/uL (4.00-5.40); RDW 14.1 % (11.5-14.5); WBC 13.5 10x3/uL (4.8-10.8)
[2018-02-12 03:07] LABS: CALCIUM 8.4 mg/dL (8.5-10.1); CARBON DIOXIDE 23.3 mmol/L (21.0-32.0); CHLORIDE - SERUM 104 mmol/L (98-107); CREATININE - SERUM 0.6 mg/dL (0.6-1.3); MAGNESIUM - SERUM 2.1 mg/dL (1.8-2.4); PHOSPHOROUS 2.3 mg/dL (2.5-4.9); SODIUM 138 mmol/L (136-145); eGFR NON AFRICAN AMERICAN > 90 mL/min (90-120)
[2018-02-12 03:08] LABS: CALC OSMOLALITY 278 mosm/kg (275-300); GLUCOSE 161 mg/dL (74-106); UREA NITROGEN 13 mg/dL (7-18)
--- NOTE | 2018-02-12 03:30 | NUR ---
PT WITH EYES CLOSED AND CHEST RISING, NO S/S OF DISTRESS. REASSESSMENT COMPLETED, SEE FLOW SHEET. WILL CONTINUE TO OBSERVE.
--- NOTE | 2018-02-12 05:12 | NUR ---
PT WITH EYES CLOSDED AND CHEST RISING. EASILY AWOKEN. NO S/S OF DISTRESS. WILL CONTINUE TO OBSERVE.
--- NOTE | 2018-02-12 07:40 | NUR ---
ROUNDING COMPLETED AT THIS TIME. LINEN CHANGED AND PATIENT PROVIDED INCONTINET CARE. CALL LIGHT IN REACH. BED IN LOWEST POSITION. HOB ELEVATED 30 DEGREES. IV INFUSING. GUZMAN DRAINING CLEAR YELLOW URINE. WILL CONT WITH POC.
--- NOTE | 2018-02-12 08:39 | NUR ---
INFECTION DISEASE NURSE NOTIFIED OF NEGATIVE CULTURE AT THIS TIME. ADVISED SHE WOULD CALL BACK ONCE SHE LOOKED OVER LABS.
--- NOTE | 2018-02-12 08:40 | NUR ---
PER INFECTION DISEASE NURSE CONTACT ISOLATION IS DISCONTINUED AT THIS TIME. FAMILY IS AWARE AND VERBALIZED UNDERSTANDING. SINCE NEGATIVE CULTURE WAS PRESENT AT LAST CULTURE PATIENT IS NO LONGER NEEDING TO REMAIN ON ISOLATION.
--- NOTE | 2018-02-12 09:51 | NUR ---
Nutrition follow-up: Pt s/p PEG placement Osmolite 1.0 madeline infusing @ 60 ml/hr -> goal rate is 70 ml/hr 60 ml H2O flush Q 4 hours Labs reviewed Pt alert, but nonverbal Wt: 120# RDN will monitor patients weight closely. If pt losing weight will need to increase TF rate. RDN following.
--- NOTE | 2018-02-12 10:45 | NUR ---
Rehab Note- Continues to be too low level to participate in the required 3hrs/day of therapy in inpatient acute rehab at this time. Will continue to follow. Dunia Cook RN Clinical Liaison, [facility]
--- NOTE | 2018-02-12 10:58 | MORECARE ---
CASE MANAGEMENT DISCHARGE SUMMARY PATIENT: JOSEPH MG UNIT: [id number] ADM DATE: 01/30/18 AGE: 67 : 48 SEX: F ROOM/BED: D.2306 AUTHOR: LAURA HURLEY PHYSICIAN: REFERRING PHYSICIAN: PIOTR DICK DO DATE OF SERVICE: 02/12/18 Discharge Plan Patient Name: JOSEPH MG Facility: [facility]:[place] : 1950 Planned Disposition: Inpatient Rehab Anticipated Discharge Date: Discharge Date: Expected LOS: Initial Reviewer: [email or web address] Initial Review Date: 02/03/2018 Generated: 02/12/18 11:58 am Comments DCP- Discharge Planning Updated by [email or web address]: Ana Willingham on 02/03/18 3:[address] Patient Name: JOSEPH MG Admission Status: ER Accout number: [id number] Admission Date: 01-30-2018 : 1950 Admission Diagnosis:DISPLACED INTERTROCHANTERIC FRACTURE OF RIGHT FEMUR, IN Attending: Piotr Dick Current LOS: 4 Anticipated DC Date: Planned Disposition: Inpatient Rehab Primary Insurance: MEDICARE A & B Discharge Planning Comments: CM spoke with patients spouse (Mike) Patient is currently non-verbal. Mike stated that she lived at home with him prior to admission. He stated that she has a caregiver that comes in 5 days a week for 4 hr. a day. (Dania) She helps with therapy speech and exercise therapy. Mike denies any discharge needs at this time. Patient has an evaluation for Inpatient Rehab but wasn't responding when PT was here for evaluation. Plan for inpatient rehab upon discharge from acute care then home. CM will continue to follow and assist with discharge planning / needs. Surface Grinder Tender: Ana Willingham DCPIA - Discharge Planning Initial Assessment Updated by [email or web address]: Ana Willingham on 02/03/18 4:22 pm * Is the patient Alert and Oriented? No * How many steps to enter\exit or inside your home? * PCP Jhony Duarte * Pharmacy [facility] * Preadmission Environment Home with Family * ADLs Partial Dependent * Partial ADLs (Assistance needed) Ambulation Bathing Dressing Eating Medication Management Toileting Transfers * Equipment Walker Wheelchair * List name and contact numbers for known caregivers / representatives who currently or will assist patient after discharge: Mike Alfredo - spouse - [phone] * Verbal permission to speak to the caregivers and representatives has been obtained from the patient. No * Community resources currently utilized Other * Please name any agencies selected above. Has residential care facility manager that comes in 5 days a week for 4 hrs day and assist with therapy and daily needs * Additional services required to return to the preadmission environment? No * Can the patient safely return to the preadmission environment? Yes * Has this patient been hospitalized within the prior 30 days at any hospital? No Last DP export: 02/03/18 3:40 Patient Name: JOSEPH MG Page [id number] at 1058 All edits/amendments must be made on the electronic document DICTATION DATE: 02/12/188 GALLEY WORKER: SHAAN 02/12/18 1058 RPT#: [id number] DC DATE: STATUS: ADM IN [facility] [address] [place] [address] END OF REPORT
--- NOTE | 2018-02-12 11:16 | MORECARE ---
CASE MANAGEMENT DISCHARGE SUMMARY PATIENT: JOSEPH MG UNIT: [id number] ADM DATE: 01/30/18 AGE: 67 : 48 SEX: F ROOM/BED: D.2306 AUTHOR: LAURA HURLEY PHYSICIAN: REFERRING PHYSICIAN: SHASHANK DICK DO DATE OF SERVICE: 02/12/18 Discharge Plan Patient Name: JOSEPH MG Facility: [facility]:[place] : 1950 Planned Disposition: Inpatient Rehab Anticipated Discharge Date: Discharge Date: Expected LOS: Initial Reviewer: [email or web address] Initial Review Date: 02/03/2018 Generated: 02/12/18 12:16 pm Comments DCP- Discharge Planning Updated by [email or web address]: Ana Willingham on 02/12/18 10:[address] CM spoke with and caregiver (Dania). stated that he was wanting patient to go to inpatient rehab. CM explained that she was to low functioning for inpatient rehab. She has to be able to withstand 3 hours of rehab. Spouse then stated if we have to chose outside the hospital then [facility] for only rehab not [facility]. [phone] fax [phone]. CM called and spoke with [facility] and faxed over records. CM awaiting on decision of acceptance or denial. CM will continue to follow and assist as needed with discharge planning / needs. DCP- Discharge Planning Updated by [email or web address]: Ana Willingham on 02/03/18 3:[address] Patient Name: JOSEPH MG Admission Status: ER Accout number: [id number] Admission Date: 01-30-2018 : 1950 Admission Diagnosis:DISPLACED INTERTROCHANTERIC FRACTURE OF RIGHT FEMUR, IN Attending: Shashank Dick Current LOS: 4 Anticipated DC Date: Planned Disposition: Inpatient Rehab Primary Insurance: MEDICARE A & B Discharge Planning Comments: CM spoke with patients spouse (Mike) Patient is currently non-verbal. Mike stated that she lived at home with him prior to admission. He stated that she has a caregiver that comes in 5 days a week for 4 hr. a day. (Dania) She helps with therapy speech and exercise therapy. Mike denies any discharge needs at this time. Patient has an evaluation for Inpatient Rehab but wasn't responding when PT was here for evaluation. Plan for inpatient rehab upon discharge from acute care then home. CM will continue to follow and assist with discharge planning / needs. Middle [employer] Math Teacher: Ana Willingham DCPIA - Discharge Planning Initial Assessment Updated by [email or web address]: Ana Willingham on 02/03/18 4:22 pm * Is the patient Alert and Oriented? No * How many steps to enter\exit or inside your home? * PCP Jhony Duarte * Pharmacy [facility] on [facility] * Preadmission Environment Home with Family * ADLs Partial Dependent * Partial ADLs (Assistance needed) Ambulation Bathing Dressing Eating Medication Management Toileting Transfers * Equipment Walker Wheelchair * List name and contact numbers for known caregivers / representatives who currently or will assist patient after discharge: Mike Alfredo - zipqhd - [phone] * Verbal permission to speak to the caregivers and representatives has been obtained from the patient. No * Community resources currently utilized Other * Please name any agencies selected above. Has ostomy care nurse that comes in 5 days a week for 4 hrs day and assist with therapy and daily needs * Additional services required to return to the preadmission environment? No * Can the patient safely return to the preadmission environment? Yes * Has this patient been hospitalized within the prior 30 days at any hospital? No External Providers External Provider: [facility] Next Contact Date: Service Request Date: Service Type: Resolution: Reviewer: Comments: Last DP export: 02/12/18 9:58 Patient Name: JOSEPH MG Page [phone] at 1116 All edits/amendments must be made on the electronic document DICTATION DATE: 02/12/18 111 MOVING CONSULTANT: SHAAN 02/12/18 1115 RPT#: [id number] [place] DATE: STATUS: ADM IN [facility] [address] [place] [address] END OF REPORT
--- NOTE | 2018-02-12 13:02 | NUR ---
VERONA REMOVED FROM RIGHT HIP AT THIS TIME. PATIENT HELD ONTO NURSE LAB COAT WHILE NURSE WAS TAKING OUT VERONA. THERE WAS 12 VERONA THAT WERE REMOVED FROM FOUR DIFFERENT AREAS TO RIGHT HIP AND THIGH. SKIN IS WELL APPROXIMATED WITH SOME SCABS OBESERVED ALONG INCISION LINE. NO REDNESS OR DRAINAGE OBSERVED.
--- NOTE | 2018-02-12 15:37 | NUR ---
INCONTINENT CARE PROVIDED AT THIS TIME. PATIENT ATTEMPTING TO HIT AT NURSES WHEN PROVIDING CARE. PATIENT CALMS DOWN WHEN TALKING TO HER WHILE PROVIDING ANY TYPE OF CARE. WILL CONT WITH POC.
--- NOTE | 2018-02-12 17:09 | NUR ---
REPORT RECIEVED. WILL RESUME CARE.
--- NOTE | 2018-02-12 17:45 | NUR ---
TUBEFEEDING BAG CHANGED.
--- NOTE | 2018-02-12 19:15 | NUR ---
REPORT RECEIVED, CARE ASSUMED. INITAL ASSESSMENT COMPLETED, SEE FLOWSHEET. PT REPOSITIONED FOR COMFORT. MONITORS ATTACHED AND WORKING CORRECTLY. NO SIGNS OF ACUTE DISTRESS. WILL CONTINUE TO MONITOR.
--- NOTE | 2018-02-12 21:14 | NUR ---
PT WAS INCONTINENT OF BM. CLEANED PT UP AND REPOSITIONED HER FOR COMFORT. NO OTHER NEEDS NOTED AT THIS TIME. NO SIGNS OF ACUTE DISTRESS. WILL CONTINUE TO MONITOR.
--- NOTE | 2018-02-12 21:18 | MORECARE ---
CASE MANAGEMENT DISCHARGE SUMMARY PATIENT: JOSEPH MG UNIT: [id number] ADM DATE: 01/30/18 AGE: 67 : 48 SEX: F ROOM/BED: D.2306 AUTHOR: LAURA HURLEY PHYSICIAN: REFERRING PHYSICIAN: SHASHANK DICK DO DATE OF SERVICE: 02/12/18 Discharge Plan Patient Name: JOSEPH MG Facility: [facility]:[place] : 1950 Planned Disposition: Inpatient Rehab Anticipated Discharge Date: Discharge Date: Expected LOS: Initial Reviewer: [email or web address] Initial Review Date: 02/03/2018 Generated: 02/12/18 10:18 pm Comments DCP- Discharge Planning Updated by [email or web address]: Ana Willingham on 02/12/18 8:[address] Late Entry 02/12/18 @ 1530 CM received notification that patient has been accepted to [facility]. They will accept patient Thursday02/13/18 request that patient be there by 11AM. Patient will need to transfer by ambulance to facility. Will need to send Osmolite 1.0 with patient because they aren't sure when shipment will be in tomorrow. CM bagged up 6 cans and placed in patients room for transport in am. CM notified nursing of arrangements. CM will continue to follow and assist with discharge planning needs. Appended by Ana Willingham on 02/12/2018 21:17 EYEDOTTER: Patient will be discharged to [facility] in a Medicare SNF bed for Rehab. DCP- Discharge Planning Updated by [email or web address]: Ana Willingham on 02/12/18 10:[address] CM spoke with and caregiver (Dania). stated that he was wanting patient to go to inpatient rehab. CM explained that she was to low functioning for inpatient rehab. She has to be able to withstand 3 hours of rehab. Spouse then stated if we have to chose outside the hospital then [facility] for only rehab not superintendent terminal care. [phone] fax [phone]. CM called and spoke with Vashti @ [facility] and faxed over records. CM awaiting on decision of acceptance or denial. CM will continue to follow and assist as needed with discharge planning / needs. DCP- Discharge Planning Updated by [email or web address]: Ana Willingham on 02/03/18 3:[address] Patient Name: JOSEPH MG Admission Status: ER Accout number: [id number] Admission Date: 01-30-2018 : 1950 Admission Diagnosis:DISPLACED INTERTROCHANTERIC FRACTURE OF RIGHT FEMUR, IN Attending: Shashank Dick Current LOS: 4 Anticipated DC Date: Planned Disposition: Inpatient Rehab Primary Insurance: MEDICARE A & B Discharge Planning Comments: CM spoke with patients spouse (Mike) Patient is currently non-verbal. Mike stated that she lived at home with him prior to admission. He stated that she has a caregiver that comes in 5 days a week for 4 hr. a day. (Dania) She helps with therapy speech and exercise therapy. Mike denies any discharge needs at this time. Patient has an evaluation for Inpatient Rehab but wasn't responding when PT was here for evaluation. Plan for inpatient rehab upon discharge from acute care then home. CM will continue to follow and assist with discharge planning / needs. Soil Science Professor: Ana Willingham DCPIA - Discharge Planning Initial Assessment Updated by [email or web address]: Ana Willingham on 02/03/18 4:22 pm * Is the patient Alert and Oriented? No * How many steps to enter\exit or inside your home? * PCP Jhony Duarte * Pharmacy [facility] on [facility] * Preadmission Environment Home with Family * ADLs Partial Dependent * Partial ADLs (Assistance needed) Ambulation Bathing Dressing Eating Medication Management Toileting Transfers * Equipment Walker Wheelchair * List name and contact numbers for known caregivers / representatives who currently or will assist patient after discharge: Mike Alfredo - spouse - [phone] * Verbal permission to speak to the caregivers and representatives has been obtained from the patient. No * Community resources currently utilized Other * Please name any agencies selected above. Has career consultant that comes in 5 days a week for 4 hrs day and assist with therapy and daily needs * Additional services required to return to the preadmission environment? No * Can the patient safely return to the preadmission environment? Yes * Has this patient been hospitalized within the prior 30 days at any hospital? No Last DP export: 02/12/18 10:16 Patient Name: JOSEPH MG Page [id number] at 2117 All edits/amendments must be made on the electronic document DICTATION DATE: 02/12/182117 DEBT COLLECTION SPECIALIST: SHAAN 02/12/182117 RPT#: [id number] DC DATE: STATUS: ADM IN [address] [place] [address] END OF REPORT
--- NOTE | 2018-02-12 23:16 | NUR ---
PT REPOSITIONED FOR COMFORT. NO SIGNS OF ACUTE DISTRESS AT THIS TIME. WILL CONTINUE TO MONITOR.
[2018-02-13] VITALS (10 sets, daily range): BP systolic 139–177; BP diastolic 66–84
--- NOTE | 2018-02-13 01:14 | NUR ---
PT REPOSITIONED FOR COMFORT. NO CHANGES NOTED. NO SIGNS OF ACUTE DISTRESS. WILL CONTINUE TO MONITOR.
--- NOTE | 2018-02-13 03:16 | NUR ---
PT REPOSITIONED FOR COMFORT. NO SIGNS OF ACUTE DISTRESS. NO CHANGES NOTED. WILL CONTINUE TO MONITOR.
[2018-02-13 04:11] LABS: BASOPHILS 0.1 % (0-2); EOSINOPHILS 1.9 % (0-7); HEMATOCRIT 27.5 % (36.0-48.0); IMMATURE GRANULOCYTES 0.6 % (0-5); LYMPHOCYTES 13.4 % (15-50); MCHC 32.7 g/dL (31.0-37.0); MCV 91.7 fL (80.0-100.0); MEAN PLATELET VOLUME 8.8 fL (7.4-10.4); MONOCYTES 11.1 % (2-11); NEUTROPHILS 72.9 % (40-80); PLATELET COUNT 334 10x3/uL (130-400); RDW 14.2 % (11.5-14.5); WBC 13.5 10x3/uL (4.8-10.8)
[2018-02-13 04:20] LABS: ALKALINE PHOSPHATASE 188 U/L (46-116); ALT (SGPT) 17 U/L (10-68); BILIRUBIN - TOTAL 0.31 mg/dL (0.2-1.3); CALC OSMOLALITY 270 mosm/kg (275-300); CALCIUM 8.3 mg/dL (8.5-10.1); CARBON DIOXIDE 21.5 mmol/L (21.0-32.0); CHLORIDE - SERUM 103 mmol/L (98-107); CREATININE - SERUM 0.5 mg/dL (0.6-1.3); GLUCOSE 163 mg/dL (74-106); MAGNESIUM - SERUM 1.9 mg/dL (1.8-2.4); POTASSIUM - SERUM 4.1 mmol/L (3.5-5.1); PROTEIN - SERUM 5.8 g/dL (6.4-8.2); SODIUM 134 mmol/L (136-145); UREA NITROGEN 10 mg/dL (7-18); eGFR NON AFRICAN AMERICAN > 90 mL/min (90-120)
[2018-02-13 04:21] LABS: PHOSPHOROUS 2.9 mg/dL (2.5-4.9)
--- NOTE | 2018-02-13 05:15 | NUR ---
PT REPOSITIONED FOR COMFORT. PT RESTING IN BED AT THIS TIME. NO SIGNS OF ACUTE DISTRESS WILL CONTINUE TO MONITOR.
--- NOTE | 2018-02-13 07:20 | NUR ---
SHIFT ASSESSMENT COMPLETE. PT AWAKE. NON-VERBAL. DOES NOT TRY TO GESTURE "YES" OR "NO" RESPONSE WHEN ASKED IF HURTING OR UNCOMFORTABLE. GUZMAN CATHETER. ROOM AIR. NO DISTRESS.
[2018-02-13] MEDS ORDERED: CATAPRES TTS-20.2 MG TD (07:33)
[2018-02-13] MEDS ORDERED: CEFUROXIME250 MG PO (07:33)
--- NOTE | 2018-02-13 09:11 | NUR ---
ATTEMPTED TO CALL [facility] AT [phone]. UNABLE TO GET ANSWER OR VOICEMAIL.
--- NOTE | 2018-02-13 09:33 | NUR ---
REPORT CALLED TO AMINATA HAWKINS RN AT [facility].
--- NOTE | 2018-02-13 09:45 | NUR ---
CALLED AND SPOKE WITH BOBBY CARLTON. TELEPHONE CONSENT GIVEN TO TRANSFER PT TO [facility] VIA AMBULANCE. CONSENT GIVEN AND 2ND WITNESS SHAUNNA HAMPTON RN.
--- NOTE | 2018-02-13 10:00 | NUR ---
TUBE FEEDING STOPPED AND TUBE FLUSHED.
--- NOTE | 2018-02-13 11:17 | NUR ---
EMS HERE TO SPORTS INSTRUCTOR PATIENT. HAS JUST BEEN CLEANED UP FROM BOWEL MOVEMENT. [facility] SENT WITH EMS TO GO TO [facility] AMINATA NOTIFIED PT ON THE WAY. SAID SHE WOULD LET KNOW.
--- NOTE | 2018-02-15 11:41 | MORECARE ---
CASE MANAGEMENT DISCHARGE SUMMARY PATIENT: JOSEPH MG UNIT: [id number] ADM DATE: 01/30/18 AGE: 67 : 48 SEX: F ROOM/BED: D.2306 AUTHOR: LAURA HURLEY PHYSICIAN: REFERRING PHYSICIAN: SHASHANK DICK DO DATE OF SERVICE: 02/15/18 Discharge Plan Patient Name: JOSEPH MG Facility: [facility]:[place] : 1950 Planned Disposition: Inpatient Rehab Anticipated Discharge Date: Discharge Date: 02/13/2018 Expected LOS: Initial Reviewer: [email or web address] Initial Review Date: 02/03/2018 Generated: 02/15/18 12:41 pm Comments DCP- Discharge Planning Updated by [email or web address]: Ana Willingham on 02/12/18 8:[address] Late Entry 02/12/18 @ 1530 CM received notification that patient has been accepted to [facility]. They will accept patient Thursday02/13/18 request that patient be there by 11AM. Patient will need to transfer by ambulance to facility. Will need to send Osmolite 1.0 with patient because they aren't sure when shipment will be in tomorrow. CM bagged up 6 cans and placed in patients room for transport in am. CM notified nursing of arrangements. CM will continue to follow and assist with discharge planning needs. Appended by Ana Willingham on 02/12/2018 21:17 ORCHID WORKER: Patient will be discharged to [facility] in a Medicare SNF bed for Rehab. DCP- Discharge Planning Updated by [email or web address]: nAa Willingham on 02/12/18 10:[address] CM spoke with and caregiver (Dania). stated that he was wanting patient to go to inpatient rehab. CM explained that she was to low functioning for inpatient rehab. She has to be able to withstand 3 hours of rehab. Spouse then stated if we have to chose outside the hospital then [facility] for only rehab not half-way care. [phone] fax [phone]. CM called and spoke with Vashti @ [facility] and faxed over records. CM awaiting on decision of acceptance or denial. CM will continue to follow and assist as needed with discharge planning / needs. DCP- Discharge Planning Updated by [email or web address]: Ana Willingham on 02/03/18 3:[address] Patient Name: JOSEPH MG Admission Status: ER Accout number: [id number] Admission Date: 01-30-2018 : 1950 Admission Diagnosis:DISPLACED INTERTROCHANTERIC FRACTURE OF RIGHT FEMUR, IN Attending: Shashank Dick Current LOS: 4 Anticipated DC Date: Planned Disposition: Inpatient Rehab Primary Insurance: MEDICARE A & B Discharge Planning Comments: CM spoke with patients spouse (Mike) Patient is currently non-verbal. Mike stated that she lived at home with him prior to admission. He stated that she has a caregiver that comes in 5 days a week for 4 hr. a day. (Dania) She helps with therapy speech and exercise therapy. Mike denies any discharge needs at this time. Patient has an evaluation for Inpatient Rehab but wasn't responding when PT was here for evaluation. Plan for inpatient rehab upon discharge from acute care then home. CM will continue to follow and assist with discharge planning / needs. Etcher [employer]ed [employer] Boards: Ana Willingham DCPIA - Discharge Planning Initial Assessment Updated by [email or web address]: Ana Willingham on 02/03/18 4:22 pm * Is the patient Alert and Oriented? No * How many steps to enter\exit or inside your home? * PCP Jhony Duarte * Pharm[facility] * Preadmission Environment Home with Family * ADLs Partial Dependent * Partial ADLs (Assistance needed) Ambulation Bathing Dressing Eating Medication Management Toileting Transfers * Equipment Walker Wheelchair * List name and contact numbers for known caregivers / representatives who currently or will assist patient after discharge: Mike Alfredo - spouse - [phone] * Verbal permission to speak to the caregivers and representatives has been obtained from the patient. No * Community resources currently utilized Other * Please name any agencies selected above. Has rn managed care that comes in 5 days a week for 4 hrs day and assist with therapy and daily needs * Additional services required to return to the preadmission environment? No * Can the patient safely return to the preadmission environment? Yes * Has this patient been hospitalized within the prior 30 days at any hospital? No Last DP export: 02/12/18 8:18 Patient Name: JOSEPH MG Page [id number] at 1141 All edits/amendments must be made on the electronic document DICTATION DATE: 02/15/18 1141 EXHAUST AND MUFFLER REPAIRER: SHAAN 02/15/18 1141 RPT#: [id number] DC DATE:02/13/18 STATUS: DIS IN [address] [place] [address] END OF REPORT
== END 2018-02-13 12:05 | DRG 981 ==
LOC: D.ER 09:36 → D.ICU 12:40
PROVIDERS: Family Medicine; Orthopaedic Surgery; Surgery; ADMIT Family Medicine
PROC: 0QH606Z Insertion of Intramedullary Internal Fixation Device into Right Upper Femur, Open Approach (ICD-10-PCS; principal; 2018-02-01 07:30)
PROC: 0DH63UZ Insertion of Feeding Device into Stomach, Percutaneous Approach (ICD-10-PCS; 2018-02-10)
PROC: 0DB78ZX Excision of Stomach, Pylorus, Via Natural or Artificial Opening Endoscopic, Diagnostic (ICD-10-PCS; 2018-02-10)
DX: I62.9 Nontraumatic intracranial hemorrhage, unspecified (principal); S72.141A Displaced intertrochanteric fracture of right femur, initial encounter for closed fracture; N39.0 Urinary tract infection, site not specified; E46 Unspecified protein-calorie malnutrition; Z68.1 Body mass index [BMI] 19.9 or less, adult; W19.XXXA Unspecified fall, initial encounter; I69.320 Aphasia following cerebral infarction; K21.9 Gastro-esophageal reflux disease without esophagitis; I10 Essential (primary) hypertension; R40.2334 Coma scale, best motor response, abnormal flexion, 24 hours or more after hospital admission; R40.2134 Coma scale, eyes open, to sound, 24 hours or more after hospital admission

== ENCOUNTER 2018-03-23 07:43 | Emergency (ER) | payer MEDICARE, OTHER ==
[~2018-03-23] VITALS: Ht 167.6 cm; Wt 52.5 kg
[~2018-03-23 07:43] MED LIST changes: +CATAPRES TTS-20.2 MG TD; +CEFUROXIME250 MG PO; +OS-CAL500 MG PO
[2018-03-23 07:45] VITALS: Ht 167.6 cm; Wt 52.5 kg
[2018-03-23 10:07] VITALS: BP 145/78
== END 2018-03-23 10:25 ==
LOC: D.ER 07:43
DX: K94.23 Gastrostomy malfunction (principal)